=== PATIENT | female | born 1985 | race Caucasian/White ===

== ENCOUNTER → 2018-06-18 12:15 | Outpatient (CLI) | payer OTHER, SELFPAY ==
--- NOTE | 2018-06-18 | DI.US.S_ITS ---
PROCEDURE: US EXTREMELY NONVASC UPPER RT INDICATIONS: SOFT TISSUE MASS RIGHT UPPER ARM TECHNIQUE: Real-time scanning was performed of the lateral right posterior upper arm area, with image documentation. COMPARISON: None. FINDINGS: The ovoid area of subcutaneous fat hyperechoic margination correlated with the area of patient's clinical concern does not show abnormal elevated vascularity and measures 9 x 12 x 14 mm. The overlying soft tissues including a cutaneous layer is not abnormally thickened or edematous. IMPRESSION: Overall the structure discussed above measuring up to 9 x 12 x 14 mm is most likely a lipoma within the fatty soft tissues of the upper posterolateral arm. Continued clinical followup is recommended. If there is an unusual clinical presentation contrast enhanced MR scanning could be utilized for more accurate assessment. Dictated by: Quinton Akbar M.D. on 06/18/2018 at 14:16 Approved by: Quinton Akbar M.D. on 06/18/2018 at 14:18
== END ==
PROVIDERS: PCP Physician Assistant; Visit Provider Physician Assistant
DX: R22.31 Localized swelling, mass and lump, right upper limb (principal)
CPT/HCPCS: 76882

== ENCOUNTER → 2018-08-03 09:51 | Outpatient (CLI) | payer OTHER, SELFPAY ==
[2018-08-03 11:00] LABS: Glucose 106 mg/dL (70-100)
[2018-08-05 16:28] LABS: Insulin Level Total 8.6 uIU/mL (2.0-19.6)
== END ==
PROVIDERS: PCP Physician Assistant; Visit Provider Obstetrics & Gynecology
DX: E28.2 Polycystic ovarian syndrome (principal)
CPT/HCPCS: 36415; 82947; 83525; 84439; 84443

== ENCOUNTER → 2018-10-01 10:34 | Outpatient (CLI) | payer OTHER, SELFPAY ==
[2018-10-01 12:36] LABS: Free T4, Direct Thyroxine 0.93 ng/dL (0.78-2.19)
[2018-10-01 12:50] LABS: Thyroid Stimulating Hormone 6.05 uIU/mL (0.47-4.68)
== END ==
PROVIDERS: PCP Physician Assistant; Visit Provider Obstetrics & Gynecology
DX: E03.9 Hypothyroidism, unspecified (principal)
CPT/HCPCS: 36415; 84439; 84443

== ENCOUNTER → 2018-12-10 12:18 | Outpatient (CLI) | payer OTHER, SELFPAY ==
[2018-12-10 14:21] LABS: Free T4, Direct Thyroxine 1.03 ng/dL (0.78-2.19)
[2018-12-10 14:35] LABS: Thyroid Stimulating Hormone 3.76 uIU/mL (0.47-4.68)
== END ==
PROVIDERS: PCP Physician Assistant; Visit Provider Obstetrics & Gynecology
DX: E03.9 Hypothyroidism, unspecified (principal)
CPT/HCPCS: 36415; 84439; 84443

== ENCOUNTER → 2019-03-03 13:55 | Outpatient (CLI) | payer OTHER, SELFPAY ==
--- NOTE | 2019-03-03 | DI.RAD.S_ITS ---
PROCEDURE: XR KNEE LT 3V INDICATIONS: ACUTE PAIN OF LT KNEE TECHNIQUE: 3 views of the knee were acquired. COMPARISON: None. FINDINGS: Bones: No fractures or dislocations. No suspicious bony lesions. Lateral patellar tilt. Chronic ossicle projects adjacent to the medial aspect of the patella Soft tissues: No joint effusion. No suspicious soft tissue calcifications. Prepatellar soft tissue swelling IMPRESSION: No fracture. If the patient's pain or other symptoms persist, consider further evaluation with MRI Dictated by: Aditya Rivero M.D. on 03/03/2019 at 16:35 Approved by: Aditya Rivero M.D. on 03/03/2019 at 16:36
== END ==
PROVIDERS: PCP Physician Assistant; Visit Provider Physician Assistant
DX: M25.562 Pain in left knee (principal); M79.89 Other specified soft tissue disorders; E03.9 Hypothyroidism, unspecified; E66.01 Morbid (severe) obesity due to excess calories; R53.83 Other fatigue; E55.9 Vitamin D deficiency, unspecified; E78.2 Mixed hyperlipidemia
CPT/HCPCS: 73562; 80053; 80061; 82306; 84443; 85025

== ENCOUNTER → 2019-03-03 18:55 | Outpatient (ROUT) | payer OTHER, SELFPAY ==
[2019-03-03 19:05] LABS: Add Manual Diff / Slide Review NO; Basophils Absolute Auto 0 /uL (0-100); Basophils Percent Auto 0.7 % (0-2); Eosinophils Absolute Auto 0 /uL (0-450); Eosinophils Percent Auto 0.7 % (2-4); Hematocrit 38.3 % (36-46); Hemoglobin 12.7 g/dL (12.0-16.0); Lymphocytes Absolute Auto 2000 /uL (1100-4500); Lymphocytes Percent Auto 30.2 % (25-40); Mean Corpuscular HGB Conc 33.3 % (30-36); Mean Corpuscular Hemoglobin 28.4 PG (26-34); Mean Corpuscular Volume 85.4 fL (80-100); Monocytes Absolute Auto 400 /uL (0-900); Monocytes Percent Auto 5.6 % (3-14); Neutrophils Absolute Auto 4200 /uL (1500-7000); Neutrophils Percent Auto 62.8 % (50-75); Platelet Count 292 X10^3/uL (150-400); Red Blood Cell Count 4.48 X10^6/uL (4.0-5.2); Red Cell Distribution Width 14.3 % (11.6-14.8); White Blood Cell Count 6.7 X10^3/uL (4.5-11.0)
[2019-03-03 19:32] LABS: Alanine Aminotransferase 32 IU/L (<35); Albumin Globulin Ratio 1.3 (1.0-2.8); Alkaline Phosphatase 94 U/L (38-126); Aspartate Aminotransferase 27 IU/L (14-36); BUN Creatinine Ratio 17.8 (6-22); Bilirubin Total 0.5 mg/dL (0.2-1.3); Blood Urea Nitrogen 16 mg/dL (7-17); Calcium 9.2 mg/dL (8.4-10.2); Carbon Dioxide 28 mmol/L (22-32); Chloride 101 mmol/L (98-107); Cholesterol 210 mg/dL (140-199); Estimated Glomerular Filt Rate > 60.0 mL/min (>60); Globulin 3.2 g/dL (1.7-4.1); Glucose 91 mg/dL (70-100); HDL Cholesterol 52 mg/dL (40-60); HEMOLYSIS < 15 (0-50); LDL Cholesterol Calculated 141 mg/dL (<100); Potassium 4.4 mmol/L (3.4-5.1); Sodium 137 mmol/L (137-145); Total Protein 7.2 g/dL (6.3-8.2); Triglycerides 86 mg/dL (35-150)
[2019-03-03 19:47] LABS: Vitamin D 25 Hydroxy (D3) 13.4 ng/mL (30.0-100.0)
[2019-03-03 20:01] LABS: TSH w/ Reflex to FT4 4.38 uIU/mL (0.47-4.68)
== END ==
PROVIDERS: PCP Physician Assistant; Visit Provider Physician Assistant
DX: E03.9 Hypothyroidism, unspecified (principal); E66.01 Morbid (severe) obesity due to excess calories; R53.83 Other fatigue; E55.9 Vitamin D deficiency, unspecified; E78.2 Mixed hyperlipidemia
CPT/HCPCS: 80053; 80061; 82306; 84443; 85025

== ENCOUNTER → 2020-06-07 18:35 | Outpatient (ROUT) | payer OTHER, SELFPAY ==
[2020-06-07 18:47] LABS: Add Manual Diff / Slide Review NO; Basophils Absolute Auto 0 /uL (0-100); Basophils Percent Auto 0.4 % (0-2); Eosinophils Absolute Auto 0 /uL (0-450); Eosinophils Percent Auto 0.6 % (2-4); Hemoglobin 12.9 g/dL (12.0-16.0); Lymphocytes Absolute Auto 1800 /uL (1100-4500); Lymphocytes Percent Auto 28.7 % (25-40); Mean Corpuscular Hemoglobin 28.7 PG (26-34); Mean Corpuscular Volume 86.8 fL (80-100); Monocytes Absolute Auto 300 /uL (0-900); Monocytes Percent Auto 5.1 % (3-14); Neutrophils Absolute Auto 4100 /uL (1500-7000); Neutrophils Percent Auto 65.2 % (50-75); Platelet Count 239 X10^3/uL (150-400); Red Blood Cell Count 4.49 X10^6/uL (4.0-5.2); Red Cell Distribution Width 14.9 % (11.6-14.8); White Blood Cell Count 6.2 X10^3/uL (4.5-11.0)
[2020-06-07 19:00] LABS: Alanine Aminotransferase 39 IU/L (<35); Albumin 3.7 g/dL (3.5-5.0); Albumin Globulin Ratio 1.1 (1.0-2.8); Alkaline Phosphatase 89 U/L (38-126); Aspartate Aminotransferase 26 IU/L (14-36); BUN Creatinine Ratio 18.4 (6-22); Bilirubin Total 0.3 mg/dL (0.2-1.3); Blood Urea Nitrogen 16 mg/dL (7-17); Carbon Dioxide 30 mmol/L (22-32); Chloride 102 mmol/L (98-107); Cholesterol 194 mg/dL (140-199); Estimated Glomerular Filt Rate > 60.0 mL/min (>60); Globulin 3.3 g/dL (1.7-4.1); Glucose 114 mg/dL (70-100); HDL Cholesterol 54 mg/dL (40-60); HEMOLYSIS < 15 (0-50); LDL Cholesterol Calculated 124 mg/dL (<100); Potassium 4.1 mmol/L (3.4-5.1); Sodium 135 mmol/L (137-145); Triglycerides 82 mg/dL (35-150)
[2020-06-07 19:12] LABS: Vitamin D 25 Hydroxy (D3) 19.9 ng/mL (30.0-100.0)
[2020-06-07 19:27] LABS: TSH w/ Reflex to FT4 4.46 uIU/mL (0.47-4.68)
[2020-06-07 19:46] LABS: HIV 1 & 2 Ab/Ag 4th Gen Combo NEGATIVE (NEGATIVE)
[2020-06-08 09:41] LABS: Hemoglobin A1C% w Est Avg Glu 5.7 % (4.0-6.0)
[2020-06-09 02:48] LABS: RPR Screen Non Reactive (Non Reactive)
[2020-06-10 05:41] LABS: Chlamydia trachomatis NAA Negative (Negative); Neisseria gonorrhoeae NAA Negative (Negative)
== END ==
PROVIDERS: PCP Physician Assistant; Visit Provider Physician Assistant
DX: E03.9 Hypothyroidism, unspecified (principal); E78.2 Mixed hyperlipidemia
CPT/HCPCS: 80053; 80061; 82306; 83036; 84443; 85025; 86592; 87389; 87491; 87591

== ENCOUNTER → 2021-06-05 19:00 | Outpatient (CLI) | payer OTHER, SELFPAY ==
--- NOTE | 2021-06-05 19:02 | DI.RAD.S_ITS ---
PROCEDURE: XR SHOULDER RT MIN 2V INDICATIONS: shoulder pain TECHNIQUE: 3 views of the shoulder were acquired. COMPARISON: None. FINDINGS: Bones: No fractures or dislocations. No suspicious bony lesions. Visualized ribs appear intact. Coracoclavicular and acromioclavicular intervals are maintained. Soft tissues: No suspicious soft tissue calcifications. IMPRESSION: Right shoulder without acute fracture or dislocation. Dictated by: Panfilo Hollingsworth M.D. on 06/05/2021 at 19:12 Approved by: Panfilo Hollingsworth M.D. on 06/05/2021 at 19:12
== END ==
PROVIDERS: PCP Physician Assistant; Referring Provider Physician Assistant; Visit Provider Physician Assistant
DX: M25.611 Stiffness of right shoulder, not elsewhere classified (principal)
CPT/HCPCS: 73030

== ENCOUNTER → 2022-06-04 16:13 | Outpatient (CLI) | payer OTHER, SELFPAY | PROVIDERS: PCP Physician Assistant; Visit Provider Obstetrics & Gynecology | DX: Z34.01 Encounter for supervision of normal first pregnancy, first trimester (principal) | CPT/HCPCS: 87086 ==

== ENCOUNTER → 2022-06-25 13:55 | Outpatient (CLI) | payer OTHER, SELFPAY ==
[2022-06-25 15:08] LABS: Add Manual Diff / Slide Review NO; Basophils Absolute Auto 0 /uL (0-100); Basophils Percent Auto 0.5 % (0-2); Eosinophils Absolute Auto 0 /uL (0-450); Eosinophils Percent Auto 0.5 % (2-4); Hematocrit 33.7 % (36-46); Hemoglobin 11.2 g/dL (12.0-16.0); Lymphocytes Absolute Auto 1800 /uL (1100-4500); Lymphocytes Percent Auto 27.4 % (25-40); Mean Corpuscular HGB Conc 33.2 % (30-36); Mean Corpuscular Hemoglobin 27.9 PG (26-34); Mean Corpuscular Volume 83.8 fL (80-100); Monocytes Absolute Auto 500 /uL (0-900); Neutrophils Absolute Auto 4300 /uL (1500-7000); Neutrophils Percent Auto 64.6 % (50-75); Platelet Count 256 X10^3/uL (150-400); Red Blood Cell Count 4.02 X10^6/uL (4.0-5.2); Red Cell Distribution Width 14.8 % (11.6-14.8); White Blood Cell Count 6.7 X10^3/uL (4.5-11.0)
[2022-06-25 15:37] LABS: Hemoglobin A1C% w Est Avg Glu 5.6 % (4.0-6.0)
[2022-06-25 15:59] LABS: Free T3, Triiodothyronine Free 4.21 pg/mL (2.77-5.27); Free T4, Direct Thyroxine 1.14 ng/dL (0.78-2.19)
[2022-06-25 16:13] LABS: Thyroid Stimulating Hormone 2.43 uIU/mL (0.47-4.68)
[2022-06-26 15:55] LABS: HIV 1 & 2 Ab/Ag 4th Gen Combo NEGATIVE (NEGATIVE); Hep C Virus Ab w/Reflex Quant NEGATIVE s/c (NEGATIVE); Hepatitis B Surface Antigen NEGATIVE s/c (NEGATIVE); Rubella Antibody IgG 12.5 IU/mL (>15)
[2022-06-27 05:30] LABS: RPR Screen Non Reactive (Non Reactive)
[2022-06-27 08:36] LABS: Varicella IgG Antibody 974 index (Immune >165)
== END ==
PROVIDERS: Specialist; Referring Provider Obstetrics & Gynecology; Visit Provider Obstetrics & Gynecology
DX: O09.511 Supervision of elderly primigravida, first trimester (principal); E03.9 Hypothyroidism, unspecified; Z34.01 Encounter for supervision of normal first pregnancy, first trimester; E28.2 Polycystic ovarian syndrome; O99.210 Obesity complicating pregnancy, unspecified trimester
CPT/HCPCS: 36415; 80055; 83036; 84439; 84443; 84481; 86787; 86803; 86850; 86900; 86901; 87389

== ENCOUNTER → 2022-09-01 10:04 | Outpatient (CLI) | payer OTHER, SELFPAY ==
--- NOTE | 2022-09-01 10:05 | DI.US.S_ITS ---
PROCEDURE: US OB >= 14 WEEKS FETUS INDICATIONS: ANATOMY OUTSIDE/PRIOR DATING DATA: Last menstrual period (LMP): 08/03/2019 LMP-based estimated date of delivery (JAYLENE): 01/10/2023. First dating scan (date and location): 06/04/2022 Estimated date of delivery (JAYLENE) from first dating scan: 01/17/2023. The calculations are made using the study generated JAYLENE of 02/09/2023. TECHNIQUE: Real-time scanning was performed of the fetus, with image documentation and biometric measurements. Endovaginal scannin decayed it COMPARISON: [facility], , OB >= 14 WEEKS FETUS, 07/29/2022, 9:28. FINDINGS: General: A single living intrauterine gestation is present. Presentation: Vertex Placenta: Placental position is anterior, without previa. Amniotic fluid index: 14.6 cm, normal range is 5-24 cm. Single deepest vertical pocket is 4.2 cm. heart rate: 155 beats per minute. Maternal cervical canal: 3.4 cm long. Normal lower limit is 2.5 cm. biometrics: Biparietal diameter: 5.0 cm, 21 weeks, 1 day. Head circumference: 18.3 cm, 20 weeks, 5 days. Abdominal circumference: 16.4 cm, 21 weeks, 3 days. Femur length: 3.6 cm, 21 weeks, 4 days. Clinically estimated gestational age: 20 weeks, 2 days. Composite gestational age from present scan: 21 weeks, 2 days. Estimated weight and percentile: 421 g, 95%. Anatomic survey: Neuro: Ventricles are non-dilated at less than 10 mm. Cisterna magna is normal at 3-11 mm. Cerebellum is normal in size and morphology. Nuchal skin fold: Normal at less than 6 mm between 14-21 weeks gestational age. Face: Nose and lips, facial profile are not well seen due to lie. Spine: No evidence for spina bifida. Heart: 4-chambered heart is present, with normal ventricular outflow tracts. Diaphragm: Diaphragm is intact. Stomach: Left-sided stomach is present. Kidneys: No hydronephrosis. Normal is less than 5 mm in 2nd trimester, less than 7 mm in 3rd trimester. Cord: 3-vessel cord has orthotopic insertion. Bladder: Normal in size. Extremities: All 4 extremities identified. IMPRESSION: 1. Single live intrauterine gestation with fetus in vertex presentation. heart rate is 155 beats per minute. Normal amount of amniotic fluid. 2. Estimated weight is at 95%. 3. facial profile is not well seen due to position. Rest of the anatomic survey is within normal limits. We strive to produce accurate, complete, and clear reports of imaging services. To assist us in improving patient care, this report was composed using standard report templates and voice recognition software. Therefore, it may contain abnormal punctuation, insertions and/or omissions. Occasional wrong-word or sound-alike substitutions may occur. Though we review the report and make efforts to correct it, we do recommend that the report be read carefully in proper context to recognize any text inaccuracies. Dictated by: Daniele Montgomery M.D. on 09/01/2022 at 11:30 Approved by: Daniele Montgomery M.D. on 09/01/2022 at 11:33
== END ==
PROVIDERS: PCP Physician Assistant; Referring Provider Obstetrics & Gynecology; Visit Provider Obstetrics & Gynecology
DX: Z34.02 Encounter for supervision of normal first pregnancy, second trimester (principal); Z3A.20 20 weeks gestation of pregnancy
CPT/HCPCS: 76811

== ENCOUNTER → 2022-09-02 10:07 | Outpatient (CLI) | payer OTHER, SELFPAY ==
[2022-09-02 12:17] LABS: Free T4, Direct Thyroxine 0.99 ng/dL (0.78-2.19)
[2022-09-02 12:31] LABS: Thyroid Stimulating Hormone 2.87 uIU/mL (0.47-4.68)
[2022-09-05 22:38] LABS: AFP, Serum 67.1 ng/mL (.); Calc Gestational Age EDD (.); Estriol, Free 1.82 ng/mL (.); Inhibin A, Dimeric 82.48 pg/mL (.); Inhibin A, MoM 0.68 (.); Maternal Ethnicity Caucasian (.); Maternal Weight 364 lbs (.); Number of Fetuses No (.); OSBR Risk 1 IN 1477 (.); Results Report (.); Test Results *Screen Negative* (.); hCG, MoM 1.31 (.); hCG, Serum 20085 mIU/mL (.)
== END ==
PROVIDERS: PCP Physician Assistant; Referring Provider Obstetrics & Gynecology; Visit Provider Obstetrics & Gynecology
DX: Z34.02 Encounter for supervision of normal first pregnancy, second trimester (principal); Z3A.20 20 weeks gestation of pregnancy; E03.9 Hypothyroidism, unspecified
CPT/HCPCS: 36415; 82105; 82677; 84439; 84443; 84702; 86336

== ENCOUNTER → 2022-09-10 12:04 | Outpatient (CLI) | payer OTHER, SELFPAY ==
[2022-09-10 13:57] LABS: GTT (PREG) 1 Hour PP 50gm Dose 201 mg/dL (76-139)
== END ==
PROVIDERS: PCP Physician Assistant; Referring Provider Obstetrics & Gynecology; Visit Provider Obstetrics & Gynecology
DX: Z34.02 Encounter for supervision of normal first pregnancy, second trimester (principal); Z3A.22 22 weeks gestation of pregnancy
CPT/HCPCS: 36415; 82950

== ENCOUNTER → 2022-09-16 16:12 | Outpatient (CLI) | payer OTHER, SELFPAY ==
--- NOTE | 2022-09-17 09:42 | DIAB.GDA ---
Initial Gestational Diabetes Assessment Name: Lexy Alcantara Date: 09/16/22 Time: 438-6p Dx: Gestational Diabetes Provider: Vish JAYLENE: 01/17/23 Weeks: 23 Lexy presents for initial GDM visit. PMH of PCOS. Last HgA1c in 06/2022 of 5.6%. Pre Metformin 500mg. Has been checking BG intermittently due to known GDM risk. 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 She is having a boy! States she has a hard time with food textures. Limited veggie acceptance. Likes some roasted options, ie carrots/zucchini. Busy work schedule tends to impact eating schedule. States she misses eating deli meat sandwiches, avoiding due to listeria risk. Diet Recall: 830-10a: take out bagel breakfast sandwich OR yogurt OR string cheese OR 1/2c bran bud cereal with milk 12-3p: grocery store hot sandwich, ie chicken or hamburger +/- fries or chips. Restaurant chicken nuggets x 6-10 + chips or fries. 6-8p: chicken with 3/4c beans and 3/4-1c rice OR 2c casserole sn: nothing or string cheese or almonds Beverages: 30-60oz water, 24oz tea with splenda, diet pepsi somtimes (cut out soda recently), frozen mocha occasionally Anthropometrics: Ht: 5'11 Wt: 362# 09/02 at last OB visit Prepregnancy wt: 340# per OB notes, 358# reported Physical Activity: walks frequently for work, however no structured activity. Barriers: schedule with work and school. Use to go to the gym, no longer has membership. Self-Monitoring Blood Glucose: Checking FBG and 1 or 2 hour pc infrequently. Postprandial readings are 2hr unless otherwise specified. All recent FBG documented elevated. After breakfast in goal. After lunch all elevated. After dinner 3 of 4 documented readings elevated. Date Pre Post Pre Post Pre Post HS 09/10 136 6/1 97 114 143 1 hr 134 2 hr 145 6/2 109 111 160 1 hr 148 2 hr 6/3 148 1 hr 94 6/4 103 119 6/5 158 6/6 119 98 124 Diabetes Medications: 500mg Metformin HS Pertinent Labs: glucose screen 201 (08/2022) ; 5.6% HgA1c 06/2022 Nutrition Rx: Carbohydrates: Daily: 175-210g Meal: 45-60g lunch and dinner; 30g breakfast Snack: 15-30g Nutrition Diagnosis: Altered nutrition related lab value r/t GDM dx aeb recent glucose screen and SMBG Excessive CHO intake r/t nutrition knowledge deficit aeb diet recall and pt report Physical inactivity r/t stage of change preparation and busy schedule aeb pt report Predicted inadequate fiber intake r/t limited whole grains and vegetables aeb diet recall Intervention: This participant was very receptive. Provided appropriate educational handouts. Discussed the following topics: GDM pathophysiology and impact of hyperglycemia on mom and baby Risk for T2DM for mom and baby in the future Ways to reduce risk T2DM Plate Method, meal timing, carb counting, pairing macronutrients and spreading out CHO for better BG management Blood glucose goals (FBG: <95 and 1 hour <140 mg/dL or 2 hour <120 mg/dl); importance of checking 4x per day (FBG and pc) Impact of macronutrients on blood glucose Recommended servings for carbohydrates at meals and snacks Brainstormed appropriate meal plan based on her food preferences Role of physical activity and following provider guidelines for safety Ways to incorporate vegetables she enjoys Fluid recs during Goals: Try to bring lunch to work Incorporate more veggies, 2x per week min Walk 3-4 x per week Check BG 4x per day Message/Call OB with recent BG results Follow-up: VALERIO RAMIREZ follow-up in two weeks. Encouraged Lexy to call or message Dr. Wahl with recent BG results. Likely needs additional medication management, which her and Vish have discussed in the past per her report. OB f/u in two weeks. Pastora Jha RDN, ASHLEY Certified Diabetes Care and Nutritional Chemist T: [phone] F: [phone] [email or web address] Thank you for this referral
== END ==
PROVIDERS: Absent Provider Physician Assistant; Family Provider Physician Assistant; PCP Physician Assistant; Referring Provider Obstetrics & Gynecology; Visit Provider Obstetrics & Gynecology
DX: O24.415 Gestational diabetes mellitus in pregnancy, controlled by oral hypoglycemic drugs (principal); Z3A.23 23 weeks gestation of pregnancy; Z71.3 Dietary counseling and surveillance
CPT/HCPCS: 97802

== ENCOUNTER → 2022-10-03 12:49 | Outpatient (CLI) | payer OTHER, SELFPAY ==
--- NOTE | 2022-10-03 13:06 | DIAB.FU ---
Follow-up Diabetes Education Assessment Name: Lexy Alcantara Date: 10/03/22 Time: 1pm Dx: Gestational Diabetes Provider: Vish Pt attending 3w f/u for gestational DM, currently 26w. 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 Pt states two days after starting insulin she noticed FBGs almost all below 95. Pt states she was instructed to increase by 2U if 3 consecutive FBG >100 which has not happened. Pt brought BG log on her phone. Reviewed numbers which look excellent. Pt states a few PP BGs were >140 but this is with higher than normal intake refined carbohydrates. Pt finding it interesting to learn how PO intake impacts BG and continues to trend this relationship and shift eating. Pt has no concerns regarding self-injecting. Pt would like RDN f/u in 4w to continue monitoring and problem solving. Self-Monitoring Blood Glucose: Date Pre Post Pre Post Pre Post HS 10/03 91 114 112 10/02 91 145 124 10/01 97 111 119 09/30 102 103 102 09/29 87 Diabetes Medications: Metformin 500mg bid NPH 10U HS Past Medical History: (Last Reviewed 06/05/21 @ 20:01 by Kristal Mckeon PA-C) Acquired hypothyroidism Anxiety Chicken pox (~1996) 11 years old Depression (~2017) Foot pain (~2015) Hemorrhoid Hypothyroidism Infertility Irregular menstrual cycle (~2013) 3+ years Polycystic ovaries Intervention: This participant was very receptive. Provided appropriate educational handouts. Discussed the following topics: Recent blood sugar results and trends Medication management Review of general nutrition recommendations and current intake Goals: Pt will keep FBG <95, if three consecutive FBG >100 will increase NPH by 2U. Pt will keep 1H PP BG <140. Pt will identify commonalities with elevated PP BG. Pt will incorporate protein snack daily while at work to support nutrition status and LE edema such as part-skim mozzarella cheese stick or Fairlife protein drink. Follow-up: RDN follow-up in 4 weeks Vera Patel MS RDN P: [phone] Thank you for this referral
== END ==
PROVIDERS: Family Provider Physician Assistant; PCP Physician Assistant; Referring Provider Obstetrics & Gynecology; Visit Provider Obstetrics & Gynecology
DX: O24.414 Gestational diabetes mellitus in pregnancy, insulin controlled (principal); Z3A.26 26 weeks gestation of pregnancy
CPT/HCPCS: 97803

== ENCOUNTER → 2022-10-31 12:43 | Outpatient (CLI) | payer OTHER, SELFPAY ==
--- NOTE | 2022-10-31 13:05 | DIAB.FU ---
Follow-up Diabetes Education Assessment Name: Lexy Alcantara Date: 10/31/22 Time: 1300 Dx: Gestational Diabetes Provider: Vish Physical Activity: ADLs 37y F attending RD f/u for Gestational Diabetes at 29w gestation. Pt with hx PCOS. Pt initiated insulin therapy at 26w gestation due to elevated FBGs. She was in range using 10U NPH HS for two weeks then started to see FBGs in 110-115 range and 2h PP >120s. Pt increased NPH by 2U q3d as directed to current level of 26U but is still seeing FBGs in 110 range and elevated PPs. Highest PP to date is 186. Per Dr. Mike, pt started 6U NPH AC in addition to evening insulin. Pt likely needs meal time insulin as meal of ham sandwich leads to slight elevation of PP BG. Pt started drinking high pro/low carb protein drink daily (Fairlife 30g PRO, 1g CHO) and noticed BGs more stable when she does consume this. Pt is interested in Continuous Glucose Monitor, this RD recommends placement of CGM due to escalation of insulin therapy with BGs outside of range despite carbohydrate intake within allowed range. Self-Monitoring Blood Glucose: Date FBG Post Pre Post 2h PP Pre Post HS 110-115 highest is 160 @ 94 on 10/24 avg 130-140 Diabetes Medications: 26U NPH HS, 6U NPH AC Past Medical History: (Last Reviewed 06/05/21 @ 20:01 by Kristal Mckeon PA-C) Acquired hypothyroidism Anxiety Chicken pox (~1996) 11 years old Depression (~2017) Foot pain (~2015) Hemorrhoid Hypothyroidism Infertility Irregular menstrual cycle (~2013) 3+ years Polycystic ovaries Intervention: 1. Discussed option of CGM placement to better characterize BG trends and insulin therapy. 2. Reiterated importance of fiber rich CHO sources and including protein with all meals and snacks. 3. Encouraged pt to take 10 min walk after meals to help BG. Goals: Pt will keep FBG <95, if three consecutive FBG >100 will increase NPH by 2U. ONGOING Pt will keep 1H PP BG <140. Pt will identify commonalities with elevated PP BG. ONGOING Pt will incorporate protein snack daily while at work to support nutrition status and LE edema such as part-skim mozzarella cheese stick or Fairlife protein drink. MET Pt will discuss Continuous Glucose Monitor c TIE PULLER for BG management support. NEW Follow-up: RDN follow-up in 3 weeks Vera Patel MS RD P: [phone] Thank you for this referral
== END ==
PROVIDERS: Family Provider Physician Assistant; PCP Physician Assistant; Referring Provider Obstetrics & Gynecology; Visit Provider Obstetrics & Gynecology
DX: O24.414 Gestational diabetes mellitus in pregnancy, insulin controlled (principal); Z3A.29 29 weeks gestation of pregnancy
CPT/HCPCS: 97803

== ENCOUNTER → 2022-11-03 15:56 | Outpatient (CLI) | payer OTHER, SELFPAY ==
[2022-11-03 17:18] LABS: Hematocrit 33.4 % (36-46); Hemoglobin 11.2 g/dL (12.0-16.0)
== END ==
PROVIDERS: Family Provider Physician Assistant; PCP Physician Assistant; Referring Provider Obstetrics & Gynecology; Visit Provider Obstetrics & Gynecology
DX: Z34.02 Encounter for supervision of normal first pregnancy, second trimester (principal); Z3A.26 26 weeks gestation of pregnancy
CPT/HCPCS: 36415; 85014; 85018

== ENCOUNTER 2022-11-17 15:27 | Outpatient (CLI) | payer OTHER, SELFPAY | END 2022-11-17 16:15 | disposition home or self-care (01) | LOC: OB 11-24 06:56 | PROVIDERS: Family Provider Physician Assistant; PCP Physician Assistant; Referring Provider Obstetrics & Gynecology; Visit Provider Obstetrics & Gynecology | DX: O24.415 Gestational diabetes mellitus in pregnancy, controlled by oral hypoglycemic drugs (principal); Z3A.31 31 weeks gestation of pregnancy | CPT/HCPCS: 59025; G0378; G0379 ==

== ENCOUNTER 2022-11-24 12:43 | Outpatient (CLI) | payer OTHER, SELFPAY | END 2022-11-24 13:25 | disposition home or self-care (01) | LOC: LABOR 12:57 → OB 11-27 12:45 | PROVIDERS: Family Provider Physician Assistant; PCP Physician Assistant; Referring Provider Obstetrics & Gynecology; Visit Provider Obstetrics & Gynecology | DX: O24.414 Gestational diabetes mellitus in pregnancy, insulin controlled (principal); O09.513 Supervision of elderly primigravida, third trimester; O99.283 Endocrine, nutritional and metabolic diseases complicating pregnancy, third trimester; E28.2 Polycystic ovarian syndrome; Z3A.32 32 weeks gestation of pregnancy | CPT/HCPCS: 59025; G0378; G0379 ==

== ENCOUNTER → 2022-11-26 12:48 | Outpatient (CLI) | payer OTHER, SELFPAY ==
--- NOTE | 2022-11-26 13:02 | DIAB.GDFU ---
Follow-up Gestational Diabetes Assessment Name: Lexy Alcantara Date: 11/26/22 Time: 1pm Dx: Gestational Diabetes Provider: Vish Weeks: 32 +4 plan to induce at 37 to 38w Pt still having FBG above goal, ranging 93-105. Increased HS NPH to 40U two days ago. Likely will continue to increase dosage. Pts PP BGs in range except during baby shower and if she eats something high in refined carbohydrates that she knows will cause BG elevation. Pt had Rx for continuous glucose monitor but [facility] unable to fill Rx. Pt waiting for pre-auth (?). Would be good for OB team to check status of Rx as pt still would like CGM due to insulin use and suboptimal BGs. Diet Recall: Fairlife drink most days per week B: breakfast sandwich on syriac muffin L: chicken tenders with ranch sometimes D: steak with corn (123 PP) sweating a lot more, urine is good color but feels slightly dehydrated. Wt changes: +25# Self-Monitoring Blood Glucose: Date Pre Post Pre Post Pre Post HS 93-105 100-140 aiming for low 90s Pt looking forward to last day of work in early December, currently training replacement. Diabetes Medications: 40U NPH HS, 16U AC Nutrition Rx: Carbohydrates: Meal: 45-g lunch and dinner; 30g breakfast Snack: 15-30g Nutrition Diagnosis: Altered nutrition related lab value r/t GDM dx aeb recent OGTT Intervention: This participant was very receptive. Provided appropriate educational handouts. Discussed the following topics: Recent blood sugar results and impact of food and hormones Review of macronutrient recommendations during Benefits, resources, and nutrition for recommendations for nutrition and physical activity recommendations for T2DM risk reduction OGTT at 6-12 weeks Checking blood sugars twice per week (goal: fasting <100 mg/dL and 2 hour pc <140 mg/dL) until 6 week check-up HgA1c q 1-3 years. Goals: To support hydration, pt will order 24oz iced tea from [employer] then add extra ice once ice melts during work days. To support hydration, pt will drink one bottle of water at 4am when she wakes to urinate. To reduce edema, pt will limit sodium intake to 600mg per meal, ensure protein with each meal and put legs up when able. Follow-up: MAIKEL Patel RD T: [phone] F: [phone] Thank you for this referral
== END ==
PROVIDERS: Absent Provider Physician Assistant Medical; Family Provider Physician Assistant; PCP Physician Assistant; Referring Provider Obstetrics & Gynecology; Visit Provider Obstetrics & Gynecology
DX: O24.414 Gestational diabetes mellitus in pregnancy, insulin controlled (principal); Z3A.32 32 weeks gestation of pregnancy; Z71.3 Dietary counseling and surveillance
CPT/HCPCS: 97803

== ENCOUNTER 2022-12-01 15:05 | Outpatient (CLI) | payer OTHER, SELFPAY ==
--- NOTE | 2022-12-01 15:35 | DI.US.S_ITS ---
PROCEDURE: US OB BIOPHYSICAL PROFILE INDICATIONS: GESTATIONAL DM OUTSIDE/PRIOR DATING DATA: Last menstrual period (LMP): 04/05/2022. LMP-based estimated date of delivery (JAYLENE): 01/10/2023. First dating scan (date and location): 06/04/2022 Estimated date of delivery (JAYLENE) from first dating scan: 01/17/2023. The calculations are made using the ultrasound JAYLENE of 01/17/2023. TECHNIQUE: Real-time scanning was performed of the fetus, with image documentation and biometric measurements. Biophysical profile was also obtained. Endovaginal scanning: Not performed COMPARISON: None. FINDINGS: General: A single living intrauterine gestation is present. Presentation: Vertex. Placenta: Placental position is anterior , without previa. Amniotic fluid index: 11.3 cm, normal range is 5-24 cm. Single deepest vertical pocket is 5.6 cm. heart rate: 139 beats per minute. Maternal cervical canal: Not seen at late stage of Clinically estimated gestational age: 33 weeks 2 days Biophysical profile: Tone: 2 points. Movement: 2 points. Respiration: 2 points. Largest pocket of fluid: 2 points. IMPRESSION: Living 3rd trimester intrauterine with no sonographic evidence of complications. Ultrasound biophysical profile is 8/8. We strive to produce accurate, complete, and clear reports of imaging services. To assist us in improving patient care, this report was composed using standard report templates and voice recognition software. Therefore, it may contain abnormal punctuation, insertions and/or omissions. Occasional wrong-word or sound-alike substitutions may occur. Though we review the report and make efforts to correct it, we do recommend that the report be read carefully in proper context to recognize any text inaccuracies. Dictated by: Apollo Rider M.D. on 12/01/2022 at 17:00 Approved by: Apollo Rider M.D. on 12/01/2022 at 17:02
[2022-12-01 16:49] LABS: Add Manual Diff / Slide Review NO; Basophils Absolute Auto 0 /uL (0-100); Basophils Percent Auto 0.3 % (0-2); Eosinophils Absolute Auto 0 /uL (0-450); Eosinophils Percent Auto 0.4 % (2-4); Hematocrit 33.5 % (36-46); Hemoglobin 11.2 g/dL (12.0-16.0); Lymphocytes Absolute Auto 2200 /uL (1100-4500); Lymphocytes Percent Auto 20.1 % (25-40); Mean Corpuscular HGB Conc 33.4 % (30-36); Mean Corpuscular Hemoglobin 28.5 PG (26-34); Mean Corpuscular Volume 85.4 fL (80-100); Monocytes Absolute Auto 600 /uL (0-900); Monocytes Percent Auto 5.2 % (3-14); Neutrophils Absolute Auto 8200 /uL (1500-7000); Platelet Count 253 X10^3/uL (150-400); Red Blood Cell Count 3.93 X10^6/uL (4.0-5.2); Red Cell Distribution Width 14.8 % (11.6-14.8); White Blood Cell Count 11.1 X10^3/uL (4.5-11.0)
[2022-12-01 16:58] LABS: Aspartate Aminotransferase 19 IU/L (14-36); BUN Creatinine Ratio 19.4 (6-22); Blood Urea Nitrogen 13 mg/dL (7-17); Estimated Glomerular Filt Rate > 60 mL/min (>60)
== END 2022-12-01 16:45 | disposition home or self-care (01) ==
LOC: LABOR 15:09 → OB 12-04 12:20
PROVIDERS: Family Provider Physician Assistant; PCP Physician Assistant; Referring Provider Obstetrics & Gynecology; Visit Provider Obstetrics & Gynecology
DX: O24.414 Gestational diabetes mellitus in pregnancy, insulin controlled (principal); Z3A.33 33 weeks gestation of pregnancy
CPT/HCPCS: 36415; 59025; 76819; 84450; 84550; 85025; G0378; G0379

== ENCOUNTER 2022-12-05 12:46 | Outpatient (CLI) | payer OTHER, SELFPAY | END 2022-12-05 13:40 | disposition home or self-care (01) | LOC: LABOR 13:17 → OB 12-08 07:21 | PROVIDERS: Family Provider Physician Assistant; PCP Physician Assistant; Referring Provider Obstetrics & Gynecology; Visit Provider Obstetrics & Gynecology | DX: O24.414 Gestational diabetes mellitus in pregnancy, insulin controlled (principal); O16.3 Unspecified maternal hypertension, third trimester; O09.513 Supervision of elderly primigravida, third trimester; Z3A.33 33 weeks gestation of pregnancy | CPT/HCPCS: 59025; G0378; G0379 ==

== ENCOUNTER 2022-12-08 15:09 | Outpatient (CLI) | payer OTHER, SELFPAY | END 2022-12-08 15:55 | disposition home or self-care (01) | LOC: LABOR 16:04 → OB 12-12 06:13 | PROVIDERS: Family Provider Physician Assistant; PCP Physician Assistant; Referring Provider Obstetrics & Gynecology; Visit Provider Obstetrics & Gynecology | DX: O24.414 Gestational diabetes mellitus in pregnancy, insulin controlled (principal); O13.3 Gestational [pregnancy-induced] hypertension without significant proteinuria, third trimester; O09.513 Supervision of elderly primigravida, third trimester; Z3A.34 34 weeks gestation of pregnancy | CPT/HCPCS: 59025; G0378; G0379 ==

== ENCOUNTER 2022-12-12 12:56 | Outpatient (CLI) | payer OTHER, SELFPAY | END 2022-12-12 13:25 | disposition home or self-care (01) | LOC: LABOR 13:21 → OB 12-16 06:15 | PROVIDERS: Family Provider Physician Assistant; PCP Physician Assistant; Referring Provider Obstetrics & Gynecology; Visit Provider Obstetrics & Gynecology | DX: O09.513 Supervision of elderly primigravida, third trimester (principal); O24.414 Gestational diabetes mellitus in pregnancy, insulin controlled; O13.3 Gestational [pregnancy-induced] hypertension without significant proteinuria, third trimester; Z3A.34 34 weeks gestation of pregnancy | CPT/HCPCS: 59025; G0378; G0379 ==

== ENCOUNTER 2022-12-16 09:57 | Outpatient (CLI) | payer OTHER, SELFPAY ==
--- NOTE | 2022-12-16 10:15 | DI.US.S_ITS ---
PROCEDURE: US OB LIMITED INDICATIONS: DIABETIC. BIOPHYSICAL AND GROWTH. OUTSIDE/PRIOR DATING DATA: Last menstrual period (LMP): 04/05/2022. LMP-based estimated date of delivery (JAYLENE): 01/10/2023. First dating scan (date and location): 06/04/2022. Estimated date of delivery (JAYLENE) from first dating scan: 01/17/2023 (working JAYLENE). TECHNIQUE: Real-time scanning was performed of the fetus, with image documentation and biometric measurements. COMPARISON: [facility], , OB >= 14 WEEKS FETUS, 12/08/2022, 15:00. [facility], , OB >= 14 WEEKS FETUS, 12/16/2022, 9:52. FINDINGS: General: A single living intrauterine gestation is present. Presentation: Vertex. Placenta: Placental position is anterior , without previa. Amniotic fluid index: 9.9 cm, normal range is 5-24 cm. Single deepest vertical pocket is 4.9 cm. heart rate: 136 beats per minute. Maternal cervical canal: Not well seen biometrics: Biparietal diameter: 9.4 centimeters, 38 weeks and 3 days Head circumference: 33.5 centimeters, 38 weeks and 3 days Abdominal circumference: 35.4 centimeters, 39 weeks and 2 days Femur length: 7.2 centimeters, 37 weeks Clinically estimated gestational age: 35 weeks and 3 days Composite gestational age from present scan: 38 weeks and 2 days Estimated weight and percentile: 3544 grams, 99th percentile BP 11/18 IMPRESSION: Living intrauterine gestation with working JAYLENE of 01/17/2023. Above expected growth, measuring 38 weeks and 2 days (estimated gestational age is 35 weeks and 3 days). Estimated weight is at the 99th percentile, particularly the abdominal circumference. Normal RUDY. Dictated by: Shen William M.D. on 12/16/2022 at 12:05 Approved by: Shen William M.D. on 12/16/2022 at 12:09
== END 2022-12-16 11:35 | disposition home or self-care (01) ==
LOC: LABOR 10:21 → OB 12-17 16:39
PROVIDERS: Family Provider Physician Assistant; PCP Physician Assistant; Referring Provider Obstetrics & Gynecology; Visit Provider Obstetrics & Gynecology
DX: O09.513 Supervision of elderly primigravida, third trimester (principal); O24.414 Gestational diabetes mellitus in pregnancy, insulin controlled; O13.3 Gestational [pregnancy-induced] hypertension without significant proteinuria, third trimester; Z3A.35 35 weeks gestation of pregnancy
CPT/HCPCS: 59025; 76815; G0378; G0379

== ENCOUNTER 2022-12-19 13:03 | Outpatient (CLI) | payer OTHER, SELFPAY | END 2022-12-19 13:55 | disposition home or self-care (01) | LOC: LABOR 13:44 → OB 12-22 11:56 | PROVIDERS: Family Provider Physician Assistant; PCP Physician Assistant; Referring Provider Obstetrics & Gynecology; Visit Provider Obstetrics & Gynecology | DX: O24.414 Gestational diabetes mellitus in pregnancy, insulin controlled (principal); O13.3 Gestational [pregnancy-induced] hypertension without significant proteinuria, third trimester; Z3A.35 35 weeks gestation of pregnancy; O09.523 Supervision of elderly multigravida, third trimester | CPT/HCPCS: 59025; G0378; G0379 ==

== ENCOUNTER 2022-12-23 10:26 | Outpatient (CLI) | payer OTHER, SELFPAY | END 2022-12-23 10:57 | disposition home or self-care (01) | LOC: LABOR 10:40 → OB 01-07 08:04 | PROVIDERS: Family Provider Physician Assistant; PCP Physician Assistant; Referring Provider Obstetrics & Gynecology; Visit Provider Obstetrics & Gynecology | DX: Z36.9 Encounter for antenatal screening, unspecified (principal); Z3A.36 36 weeks gestation of pregnancy | CPT/HCPCS: 59025; 87653; G0378; G0379 ==

== ENCOUNTER → 2022-12-23 10:26 | Outpatient (CLI) | payer OTHER, SELFPAY ==
[2022-12-24 13:27] LABS: Strep Grp B PCR NEG for Grp B Strep
== END ==
PROVIDERS: Family Provider Physician Assistant; PCP Physician Assistant; Visit Provider Obstetrics & Gynecology
DX: Z34.03 Encounter for supervision of normal first pregnancy, third trimester (principal); Z3A.36 36 weeks gestation of pregnancy
CPT/HCPCS: 87653

== ENCOUNTER 2022-12-26 13:06 | Outpatient (CLI) | payer OTHER, SELFPAY ==
--- NOTE | 2022-12-26 13:49 | PM.OBTRLD ---
Visit Information Visit Information Date of evaluation: 12/26/22 Primary OB Provider: Norma Wahl On-call OB Provider: Genna Mike Reason for Evaluation: Yes non-stress test non-stress test reason: diabetes (On insulin) Comments/Additional reasons for admission: Advanced maternal age, 99th percentile for growth mostly from increased abdominal circumference on ultrasound performed at 36 weeks Vital Signs Vital Signs: Blood pressure 132/66, pulse of 83, temperature 35.7 PFSH Medical History Acquired hypothyroidism Anxiety Chicken pox (~1996) Depression (~2017) Foot pain (~2015) Hemorrhoid Hypothyroidism Infertility Irregular menstrual cycle (~2013) Polycystic ovaries Surgical History Anesthesia Lipoma [place] teeth removed (~2002) Family History (Updated 05/13/22 @ 14:13 by Zuri Crawford RN) Father Stroke Family estrangement Agent orange exposure Mother Hypertension Hyperlipidemia Lung cancer Hypothyroidism Grandfather Diabetes mellitus Hypertension Hyperlipidemia Obesity Grandmother Aortic aneurysm Family/Other Thyroid disease Lymphoma Social History marital status: unmarried,living together number of children: 0 household members: spouse lives independently: Yes caregiver/support person: No housing: house pets and animals: Yes (2 cats, 1 dog. 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[employer]) current occupational exposures/hazards: Yes (Aware and taking precautions) special hannah needs: No travel history: recent (domestic cross-country move) seatbelt use: always water heater temp set < 120 deg: Yes working smoke detector in home: Yes fire extinguisher in home: Yes carbon monox detector in home: Yes firearms in home: Yes firearms unloaded and locked: Yes do you feel safe at home: Yes Smoking Status: Never smoker second hand exposure: No alcohol intake: former (very rarely when not ) substance use type: marijuana (occasional edibles when not /) during the past year weight has: remained stable well-balanced diet: rarely or never daily servings fruits/ve-4 caffeine: No (quit when she learned she was ) Type(s) of exercise: walking Evaluation Evaluation Baseline heart rate: 130 Variability: Moderate (11-25) monitor accelerations: Present Monitor Decelerations: Absent Contraction Frequency (minutes): 0 Category of Tracing: Reactive Status: Category l Diagnosis, Plan/Disposition Final Diagnosis (1) Gestational diabetes requiring insulin: Status: Acute (2) Advanced maternal age (AMA) in : Status: Acute (3) 36 weeks gestation of : Status: Acute Plan/Disposition Plan: Reactive nonstress test. Continue twice weekly nonstress tests and weekly visits OB Disposition: home
== END 2022-12-26 13:55 | disposition home or self-care (01) ==
LOC: LABOR 13:30 → OB 01-26 11:51
PROVIDERS: Family Provider Physician Assistant; PCP Physician Assistant; Referring Provider Obstetrics & Gynecology; Visit Provider Obstetrics & Gynecology
DX: O24.414 Gestational diabetes mellitus in pregnancy, insulin controlled (principal); Z3A.36 36 weeks gestation of pregnancy; O09.513 Supervision of elderly primigravida, third trimester
CPT/HCPCS: 59025; G0378; G0379

== ENCOUNTER 2022-12-28 19:42 | Inpatient (IN) | payer OTHER, SELFPAY ==
[2022-12-28 19:46] VITALS: BP 143/72
--- NOTE | 2022-12-28 20:47 | P.HPOB_ITS ---
OB HPI Date/Time Date of admission: 12/28/22 Time Patient Seen: 20:50 History of Present Condition Chief complaint: induction : 1 Para: 0 Estimated Date of Delivery: 01/17/23 Estimated Gestational Age (weeks): 37w 1d Narrative: Lexy Alcantara is a 37 year old female Comments: Ient has started her OB care at 8 weeks' gestation. She was a known polycystic ovary patient and was on metformin for conception. She was started immediately on glucose monitoring. It was determined that she needed to add insulin for additional blood sugar control. Her most recent doses are insulin NPH 20 in the morning and 38 in the evening. She is been noted to have gradual increasing blood pressure near term. She was started on labetalol 1 week ago 100 mg daily. Her most recent visit on the 16 of December so the blood pressure 120/86. She is been followed with ultrasounds for growth. She is also noted to have hypothyroidism since childhood. She is currently taking 170 mcg of levothyroxine. She presents today for induction of labor at 37 weeks because of her gestational diabetes with insulin control as well as increasing BP Indications Indication for induction OB: gestational HTN/pre-eclampsia (Increasing blood pressure requiring labetalol 100 mg p.o. q.d.) and gestational diabetes (NPH 20 units q.a.m. 38 units the p.m.. Metformin 500 mg p.o. b.i.d.) History of Present Obstetrical complications: gestational diabetes and gestational hypertension Preadmission Labs Blood type: A (+) positive -: Antibody screen: negative, GBS status: negative, HBsAG: negative, HIV: negative, HSV 1: negative, HSV 2: negative and RPR/VDLR: negative -: Chlamydia screen: not detected and Gonorrhea screen: not detected -: Rubella: equivocal and Varicella: immune Quad screen: Normal Cell-free DNA: CFT was equivocal. 1 hr GTT: 201 Evaluation Evaluation Baseline heart rate: 130 Variability: Average (6-10) monitor accelerations: Present Monitor Decelerations: Absent Status: Category l Dilation (cm): 1 Dilation: 1-2 cm Effacement: 40-50% station: -2 Position of cervix: anterior Consistency: soft Neumann score: 7 Non-invasive Membranes Rupture Test: negative [facility] Medical History Acquired hypothyroidism Anxiety Chicken pox (~1996) Depression (~2017) Foot pain (~2015) Hemorrhoid Hypothyroidism Infertility Irregular menstrual cycle (~2013) Polycystic ovaries Surgical History Anesthesia [place]oma [place] teeth removed (~2002) Family History (Updated 05/13/22 @ 14:13 by Zuri Crawford RN) Father Stroke Family estrangement Agent orange exposure Mother Hypertension Hyperlipidemia Lung cancer Hypothyroidism Grandfather Diabetes mellitus Hypertension Hyperlipidemia Obesity Grandmother Aortic aneurysm Family/Other Thyroid disease Lymphoma Social History marital status: unmarried,living together number of children: 0 household members: spouse lives independently: Yes caregiver/support person: No housing: house pets and animals: Yes (2 cats, 1 dog. 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[employer]) current occupational exposures/hazards: Yes (Aware and taking precautions) special hannah needs: No travel history: recent (domestic cross-country move) seatbelt use: always water heater temp set < 120 deg: Yes working smoke detector in home: Yes fire extinguisher in home: Yes carbon monox detector in home: Yes firearms in home: Yes firearms unloaded and locked: Yes do you feel safe at home: Yes Smoking Status: Never smoker second hand exposure: No alcohol intake: former (very rarely when not ) substance use type: marijuana (occasional edibles when not /) during the past year weight has: remained stable well-balanced diet: rarely or never daily servings fruits/ve-4 caffeine: No (quit when she learned she was ) Type(s) of exercise: walking Meds Home Medications and Allergies Home Medications Medication Instructions Recorded Confirmed Type cholecalciferol (vitamin D3) 50 50 mcg PO DAILY 05/13/22 12/23/22 History mcg (2,000 unit) capsule levothyroxine 175 mcg tablet 175 mcg PO DAILY 05/13/22 12/23/22 History prenat.vits,dinesh,tgc-rfrx-ccgna 1 tab PO DAILY 05/13/22 12/23/22 History blood-glucose meter (Blood Glucose #1 ea 09/10/22 12/23/22 Rx Monitoring kit) metformin 500 mg tablet 500 mg PO BID #60 tabs 09/25/22 12/23/22 Rx blood-glucose meter,continuous #1 ea 11/04/22 12/23/22 Rx lancets 33 gauge (TRUEplus Lancets) #300 ea 11/21/22 12/23/22 Rx blood sugar diagnostic (OneTouch #300 strips 12/02/22 12/23/22 Rx Verio test strips) aspirin 81 mg tablet,delayed 81 mg PO DAILY 12/16/22 12/23/22 History release (Adult Low Dose Aspirin) insulin NPH isoph U-100 human 100 20 unit (0.2 mL) SUBCUT .COMPLEX 12/16/22 12/23/22 Rx unit/mL (3 mL) subcutaneous pen #15 mL (Humulin N NPH U-100 Insulin KwikPen) pen needle, diabetic 31 gauge x #100 ea 12/16/22 12/23/22 Rx 1/4 (Lite Touch Insulin Pen [place]) labetalol 100 mg tablet 100 mg PO BID #60 tabs 12/19/22 12/23/22 Rx Allergies Allergy/AdvReac Type Severity Reaction Status Date / Time clavulanic acid AdvReac Unknown HEADACHE, Verified 12/23/22 09:08 [From Augmentin] SENSITIVITY TO LIGHT, NAUSE OB Exam Vital signs Blood Pressure: 138/76 Pulse Rate: 77 Respiratory Rate: 18 Temperature: 35.9 F HENMT Head: normal to inspection Mouth: oral mucosae normal, lip normal, tongue normal and tongue abnormal Eyes General: appearance normal, both eyes and all related structures Other: Equal round and reactive to light, no scleral icterus noted Resp Effort & Inspection: normal respiratory effort and able to speak in complete sentences Auscultation: clear to auscultation bilaterally Cardio Rate: regular rate Rhythm: regular rhythm Heart Sounds: S1 normal and S2 normal Extremities DTR's: Rt Patellar: 1+ and Lt Patellar: 1+ GI Inspection: normal to inspection Palpation: Yes soft and Yes no hepatosplenomegaly Percussion: Yes normal to percussion Auscultation: normal bowel sounds Presentation: vertex (Vertex by ultrasound.) Objective Labs 12/28/22 20:55 12/28/22 20:55 Assessment and Plan Assessment and Plan Assessment and Plan narrative: 1. [age]-year-old G 1p 0 at 37 weeks and 1 day by 1st trimester ultrasound 2. Gestational diabetes utilizing metformin and NPH insulin 20 units in the morning and 38 units at night good control 3. Hypertension. Well controlled with 100 mg of labetalol daily. 4. Hypothyroidism currently on 175 mcg of levothyroxine. Plan: 1 start cervical ripening with 25 mcg of misoprostol orally ultrasound shows to be vertex presentation. 2 continue with her insulin and metformin. Will probably need to change to insulin drip during labor. 3 will obtain CMP as well as protein creatinine ratio looking for evidence of preeclampsia. Time Spent with Patient Total time spent with greater than 50% in coordination of care (as documented) at patient's floor/unit and/or counseling patient:: Greater than 35 minutes (Reviewing Ob history examining patient performing ultrasound entering orders and history and physical)
[2022-12-28] MEDS: miSOPROStoL 25 MCG TABLET PO (20:59)
[2022-12-28 21:07] LABS: Add Manual Diff / Slide Review NO; Basophils Absolute Auto 0 /uL (0-100); Basophils Percent Auto 0.5 % (0-2); Eosinophils Absolute Auto 0 /uL (0-450); Eosinophils Percent Auto 0.3 % (2-4); Hematocrit 29.4 % (36-46); Hemoglobin 9.9 g/dL (12.0-16.0); Lymphocytes Absolute Auto 1800 /uL (1100-4500); Lymphocytes Percent Auto 19.5 % (25-40); Mean Corpuscular HGB Conc 33.8 % (30-36); Mean Corpuscular Hemoglobin 28.8 PG (26-34); Mean Corpuscular Volume 85.2 fL (80-100); Monocytes Absolute Auto 500 /uL (0-900); Monocytes Percent Auto 6.1 % (3-14); Neutrophils Absolute Auto 6600 /uL (1500-7000); Neutrophils Percent Auto 73.6 % (50-75); Platelet Count 225 X10^3/uL (150-400); Red Blood Cell Count 3.44 X10^6/uL (4.0-5.2); Red Cell Distribution Width 15.5 % (11.6-14.8)
--- NOTE | 2022-12-28 21:09 | P.HPOB_ITS ---
OB HPI History of Present Condition Chief complaint: induction Narrative: Lexy Alcantara is a 37 year old female [facility] Medical History Acquired hypothyroidism Anxiety Chicken pox (~1996) Depression (~2017) Foot pain (~2015) Hemorrhoid Hypothyroidism Infertility Irregular menstrual cycle (~2013) Polycystic ovaries Surgical History Anesthesia Lipoma [place] teeth removed (~2002) Family History (Updated 05/13/22 @ 14:13 by Zuri Crawford RN) Father Stroke Family estrangement Agent orange exposure Mother Hypertension Hyperlipidemia Lung cancer Hypothyroidism Grandfather Diabetes mellitus Hypertension Hyperlipidemia Obesity Grandmother Aortic aneurysm Family/Other Thyroid disease Lymphoma Social History marital status: unmarried,living together number of children: 0 household members: spouse lives independently: Yes caregiver/support person: No housing: house pets and animals: Yes (2 cats, 1 dog. 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 (Aware and taking precautions) special hannah needs: No travel history: recent (domestic cross-country move) seatbelt use: always water heater temp set < 120 deg: Yes working smoke detector in home: Yes fire extinguisher in home: Yes carbon monox detector in home: Yes firearms in home: Yes firearms unloaded and locked: Yes do you feel safe at home: Yes Smoking Status: Never smoker second hand exposure: No alcohol intake: former (very rarely when not ) substance use type: marijuana (occasional edibles when not /) during the past year weight has: remained stable well-balanced diet: rarely or never daily servings fruits/ve-4 caffeine: No (quit when she learned she was ) Type(s) of exercise: walking Meds Home Medications and Allergies Home Medications Medication Instructions Recorded Confirmed Type cholecalciferol (vitamin D3) 50 50 mcg PO DAILY 05/13/22 12/23/22 History mcg (2,000 unit) capsule levothyroxine 175 mcg tablet 175 mcg PO DAILY 05/13/22 12/23/22 History prenat.vits,dinesh,ssn-rmcn-sshuo 1 tab PO DAILY 05/13/22 12/23/22 History blood-glucose meter (Blood Glucose #1 ea 09/10/22 12/23/22 Rx Monitoring kit) metformin 500 mg tablet 500 mg PO BID #60 tabs 09/25/22 12/23/22 Rx blood-glucose meter,continuous #1 ea 11/04/22 12/23/22 Rx lancets 33 gauge (TRUEplus Lancets) #300 ea 11/21/22 12/23/22 Rx blood sugar diagnostic (OneTouch #300 strips 12/02/22 12/23/22 Rx Verio test strips) aspirin 81 mg tablet,delayed 81 mg PO DAILY 12/16/22 12/23/22 History release (Adult Low Dose Aspirin) insulin NPH isoph U-100 human 100 20 unit (0.2 mL) SUBCUT .COMPLEX 12/16/22 12/23/22 Rx unit/mL (3 mL) subcutaneous pen #15 mL (Humulin N NPH U-100 Insulin KwikPen) pen needle, diabetic 31 gauge x #100 ea 12/16/22 12/23/22 Rx 1/4 (Lite Touch Insulin Pen [place]) labetalol 100 mg tablet 100 mg PO BID #60 tabs 12/19/22 12/23/22 Rx Allergies Allergy/AdvReac Type Severity Reaction Status Date / Time clavulanic acid AdvReac Unknown HEADACHE, Verified 12/23/22 09:08 [From Augmentin] SENSITIVITY TO LIGHT, NAUSE Objective Labs 12/28/22 20:55 12/28/22 20:55
--- NOTE | 2022-12-28 21:09 | P.HPOB_ITS ---
OB HPI <Genna Mike MD - Last Filed: 12/29/22 12:50> Date/Time Date of admission: 12/28/22 Date Patient Seen: 12/29/22 Time Patient Seen: 09:30 History of Present Condition Chief complaint: induction JAYLENE Calculator Estimated Delivery Date Method Current WG Current Estimate 01/17/23 Manual 37w 3d Patient sta will her cycles are longer than 28 days Other Estimates 01/10/23 LMP (Certain) 38w 3d 01/17/23 Ultrasound #1 37w 3d 01/17/23 Ultrasound #2 37w 3d Estimated Gestational Age (weeks): 37 : 1 Para: 0 Narrative: Patient is a 37-year-old EDC 01/17/2023 at 37 weeks 2 days if brought in for admission for advanced maternal age, insulin-requiring gestational diabetes care: good care, initiated at week # (7), number of visits (11) and pounds weight gain (32) Dating criteria OB: based on 1st trimester US only Ultrasounds: normal mid trimester US Obstetrical complications: gestational diabetes (Insulin-requiring) Medical complications OB: none Indications Indication for induction OB: gestational diabetes (Insulin-requiring) and other (Advanced maternal age) Preadmission Labs Last OB Lab Results: Blood Type A Positive 12/28/22 20:55 Antibody Screen Negative 12/28/22 20:55 Hematocrit 29.4 % (36-46) L 12/28/22 20:55 Hemoglobin 9.9 g/dL (12.0-16.0) L 12/28/22 20:55 Hepatitis B Surface Antigen Negative s/c (NEGATIVE) 06/25/22 14 :00 Hepatitis C Antibody Negative s/c (NEGATIVE) 06/25/22 14:00 Rubella Antibody 12.5 IU/mL (>15) L 06/25/22 14:00 Varicella-Zoster IgG Antibody 974 index (Immune >165) 06/25/22 14:00 Glucose 1 Hour 201 mg/dL (76-139) H 09/10/22 13:10 Group B Streptococcus (PCR) Neg for grp b strep 12/23/22 10:26 -: Chlamydia screen: negative and Gonorrhea screen: negative Genetic Screens: Quad screen: Normal Evaluation <Genna Mike MD - Last Filed: 12/29/22 12:50> Evaluation Baseline heart rate: 125 Variability: Moderate (11-25) monitor accelerations: Present Monitor Decelerations: Absent Contraction Frequency (minutes): 4 Uterine Contraction Intensity: Mild Category of Tracing: Reactive Status: Category l Dilation (cm): 2 Effacement (%): 70 Dilation: 1-2 cm Effacement: >/=80% station: -1 Position of cervix: mid Consistency: soft Neumann score: 9 <Norma Wahl MD - Last Filed: 12/30/22 07:51> Evaluation Neumann score: 9 PFSH <Genna Mike MD - Last Filed: 12/29/22 12:50> Medical History Acquired hypothyroidism Anxiety Chicken pox (~1996) Depression (~2017) Foot pain (~2015) Hemorrhoid Hypothyroidism Infertility Irregular menstrual cycle (~2013) Polycystic ovaries Surgical History Anesthesia Lipoma [place] teeth removed (~2002) Family History (Updated 05/13/22 @ 14:13 by Zuri Crawford RN) Father Stroke Family estrangement Agent orange exposure Mother Hypertension Hyperlipidemia Lung cancer Hypothyroidism Grandfather Diabetes mellitus Hypertension Hyperlipidemia Obesity Grandmother Aortic aneurysm Family/Other Thyroid disease Lymphoma Social History marital status: unmarried,living together number of children: 0 household members: spouse lives independently: Yes caregiver/support person: No housing: house pets and animals: Yes (2 cats, 1 dog. 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 (Aware and taking precautions) special hannah needs: No travel history: recent (domestic cross-country move) seatbelt use: always water heater temp set < 120 deg: Yes working smoke detector in home: Yes fire extinguisher in home: Yes carbon monox detector in home: Yes firearms in home: Yes firearms unloaded and locked: Yes do you feel safe at home: Yes Smoking Status: Never smoker second hand exposure: No alcohol intake: former (very rarely when not ) substance use type: marijuana (occasional edibles when not /) during the past year weight has: remained stable well-balanced diet: rarely or never daily servings fruits/ve-4 caffeine: No (quit when she learned she was ) Type(s) of exercise: walking Meds <Genna Mike MD - Last Filed: 12/29/22 12:50> Home Medications and Allergies Home Medications Medication Instructions Recorded Confirmed Type cholecalciferol (vitamin D3) 50 50 mcg PO DAILY 05/13/22 12/28/22 History mcg (2,000 unit) capsule levothyroxine 175 mcg tablet 175 mcg PO DAILY 05/13/22 12/28/22 History prenat.vits,dinesh,fna-lipf-kqtos 1 tab PO DAILY 05/13/22 12/28/22 History blood-glucose meter (Blood Glucose #1 ea 09/10/22 12/28/22 Rx Monitoring kit) metformin 500 mg tablet 500 mg PO BID #60 tabs 09/25/22 12/28/22 Rx blood-glucose meter,continuous #1 ea 11/04/22 12/28/22 Rx lancets 33 gauge (TRUEplus Lancets) #300 ea 11/21/22 12/28/22 Rx blood sugar diagnostic (OneTouch #300 strips 12/02/22 12/28/22 Rx Verio test strips) aspirin 81 mg tablet,delayed 81 mg PO DAILY 12/16/22 12/28/22 History release (Adult Low Dose Aspirin) insulin NPH isoph U-100 human 100 20 unit (0.2 mL) SUBCUT .COMPLEX 12/16/22 12/28/22 Rx unit/mL (3 mL) subcutaneous pen #15 mL (Humulin N NPH U-100 Insulin KwikPen) pen needle, diabetic 31 gauge x #100 ea 12/16/22 12/28/22 Rx 1/4 (Lite Touch Insulin Pen [place]) labetalol 100 mg tablet 100 mg PO BID #60 tabs 12/19/22 12/28/22 Rx Allergies Allergy/AdvReac Type Severity Reaction Status Date / Time clavulanic acid AdvReac Unknown HEADACHE, Verified 12/23/22 09:08 [From Augmentin] SENSITIVITY TO LIGHT, NAUSE Review of Systems <Genna Mike MD - Last Filed: 12/29/22 12:50> Review of Systems Narrative: Patient with no ruptured membranes. No headaches, scotomata, epigastric pain. Good movement. No vaginal bleeding. OB Exam <Genna Mike MD - Last Filed: 12/29/22 12:50> Vital signs Blood Pressure: 138/76 Pulse Rate: 73 Temperature: 97.0 F Narrative Exam Narrative: HEENT exam within normal limits. Lungs are clear to auscultation and percussion. Cor is regular rate and rhythm no S3-S4 murmurs. No thyromegaly. Abdomen is gravid. Fetus is vertex. Extremities with trace edema and nontender. Objective <Genna Mkie MD - Last Filed: 12/29/22 12:50> Labs 12/28/22 20:55 12/28/22 20:55 Assessment and Plan <Genna Mike MD - Last Filed: 12/29/22 12:50> Assessment and Plan Assessment and Plan narrative: 37 week 2 day gestation admitted for induction for insulin requiring diabetes and advanced maternal age here for induction. Patient received Cytotec overnight. Midnight glucose level 89. Current glucose level 101. Discussion of possible Mosqueda bulb versus Pitocin induction. Time Spent with Patient Total time spent with greater than 50% in coordination of care (as documented) at patient's floor/unit and/or counseling patient:: less than 15 minutes
[2022-12-28 21:28] LABS: Alanine Aminotransferase 26 IU/L (<35); Albumin 3.3 g/dL (3.5-5.0); Albumin Globulin Ratio 0.9 (1.0-2.8); Alkaline Phosphatase 107 U/L (38-126); Aspartate Aminotransferase 21 IU/L (14-36); BUN Creatinine Ratio 22.4 (6-22); Bilirubin Total 0.2 mg/dL (0.2-1.3); Blood Urea Nitrogen 15 mg/dL (7-17); Calcium 9.6 mg/dL (8.4-10.2); Carbon Dioxide 22 mmol/L (22-32); Chloride 104 mmol/L (98-107); Estimated Glomerular Filt Rate > 60 mL/min (>60); Globulin 3.6 g/dL (1.7-4.1); Glucose 85 mg/dL (70-100); HEMOLYSIS < 15 (0-50); Potassium 4.1 mmol/L (3.4-5.1); Sodium 133 mmol/L (137-145); Total Protein 6.9 g/dL (6.3-8.2)
[2022-12-28 21:33] VITALS: BP 138/76; PULSE 77; RESP 18; TEMP 2.2; TEMP 35.9
[2022-12-28 22:12] LABS: Creatinine Urine Random 40.1 mg/dL; Protein (Total) Urine Random 8 mg/dL (0-12); Protein Creatinine Ratio Urine 0.19 GRAM/24H
[2022-12-28] MEDS: LABETALOL 100 MG TABLET PO (22:16)
[2022-12-29] MEDS: miSOPROStoL 25 MCG TABLET PO ×2 (01:00→05:00)
[2022-12-29] MEDS: LEVOTHYROXINE 100 MCG TABLET PO (06:53)
[2022-12-29] MEDS: LEVOTHYROXINE 75 MCG TABLET PO (06:53)
[2022-12-29 08:55] VITALS: BP 138/76; PULSE 80
[2022-12-29] MEDS: LABETALOL 100 MG TABLET PO ×2 (08:55→20:45)
[2022-12-29] MEDS: METFORMIN HCL 500 MG TABLET PO ×2 (08:56→18:21)
--- NOTE | 2022-12-29 09:48 | PM.PROC.1 ---
Procedures Date/Time Date of procedure: 12/29/22 Time of procedure: 09:49 General Procedure description: Mosqueda balloon for induction. Patient had Cytotec overnight for induction for insulin-dependent diabetes. Her cervix was 1 cm dilated 50% effaced. Discussed options of further induction with patient and she is agreeable to do a Mosqueda balloon. A speculum was placed in the vagina and the Mosqueda balloon placed with the balloon inflated to 60 cc. During the placement that patient's external os was 4 cm in internal os 2 cm. Cervix was 75% effaced.-1 station. With inflating the balloon the balloon catheter broke. Decision was made to just start Pitocin rather than try to replace the balloon. Blood pressure 138/76, pulse 73, temperature 36.1?. Patient has had 2 random glucose levels. 8:30 a.m. glucose 101.
[2022-12-29] MEDS: LACTATED RINGERS 1,000 ML 100 ML IV (10:28)
[2022-12-29] MEDS: OXYTOCIN PREMIX 30 UNIT/500 ML PLAST..BAG IV (10:28)
[2022-12-29 12:50] VITALS: BP 138/76; PULSE 73; TEMP 36.1
--- NOTE | 2022-12-29 14:58 | PM.OBPNLAB ---
Date/Time Date Patient Seen: 12/29/22 Time Patient Seen: 14:59 Pain Control Pain control: tolerating well Pelvic Exam Dilation (cm): 3 Effacement (%): 70 station: -1 Amniotic membrane status: Intact Contractions Monitor mode: External Pitocin rate (mU/min): 12 Contraction frequency (min): 3 Contraction duration (min): 1 Contraction pattern: Regular Contraction intensity: Moderate Status status: Category l Heart Rate Baseline: 120 Monitor Accelerations: Present Monitor Decelerations: Absent Monitor Variability: Moderate Assessment and Plan Assessment: induction ongoing Plan: continuous present management
--- NOTE | 2022-12-29 17:33 | PM.OBPNLAB ---
Date/Time Date Patient Seen: 12/29/22 Time Patient Seen: 17:34 Pain Control Pain control: tolerating well Pelvic Exam Dilation (cm): 3 Effacement (%): 80 station: -1 Amniotic membrane status: Intact Contractions Contractions on admission: regular Monitor mode: External Pitocin rate (mU/min): 18 Contraction frequency (min): 3 Contraction duration (min): 1 Contraction pattern: Regular Contraction intensity: Moderate Status status: Category l Heart Rate Baseline: 130 Monitor Accelerations: Present Monitor Decelerations: Absent Monitor Variability: Moderate Assessment and Plan Assessment: induction ongoing Plan: other Comments: Patient with no significant progress in labor despite Pitocin all day and Pitocin at 18 units. Will stop Pitocin for now allow patient to eat due to diabetes and rest. Restart Pitocin morning if she does not go into spontaneous labor.
[2022-12-29] MEDS: IRON SUCROSE 200 MG in SODIUM CHLORIDE 0.9% 100 ML 220 MG IV (20:28)
[2022-12-29 20:45] VITALS: BP 141/83
[2022-12-29] MEDS: INSULIN NPH 100 UNIT/ML 10ML VIAL 38 UNIT SUBCUT (20:45)
[2022-12-30] MEDS: LEVOTHYROXINE 100 MCG TABLET PO (06:12)
[2022-12-30] MEDS: LEVOTHYROXINE 75 MCG TABLET PO (06:12)
[2022-12-30] MEDS: METFORMIN HCL 500 MG TABLET PO (07:46)
--- NOTE | 2022-12-30 07:51 | PM.OBPNLAB ---
Date/Time Date Patient Seen: 12/30/22 Time Patient Seen: 07:52 Pain Control Pain control: tolerating well Comments: Pitocin all day yesterday shut off last night due to no cervical change. She was 3-4 cm at that time Pelvic Exam Dilation (cm): 3 Effacement (%): 80 station: -1 Amniotic membrane status: Intact Comments: Fasting blood sugars 78, NPH held Contractions Monitor mode: External Contraction frequency (min): 10 Contraction pattern: Regular Contraction intensity: Mild Status status: Category l Heart Rate Baseline: 122 Monitor Accelerations: Present Monitor Decelerations: Absent Monitor Variability: Moderate Assessment and Plan Assessment: induction ongoing Comments: Restart Pitocin Artificial rupture of membranes mid morning Expected management to spontaneous vaginal delivery
[2022-12-30] MEDS: LABETALOL 100 MG TABLET PO (09:04)
[2022-12-30] MEDS: OXYTOCIN PREMIX 30 UNIT/500 ML PLAST..BAG IV (09:06)
--- NOTE | 2022-12-30 10:57 | PM.OBPNLAB ---
Date/Time Date Patient Seen: 12/30/22 Time Patient Seen: 10:30 Pain Control Pain control: tolerating well Pelvic Exam Dilation (cm): 4 Effacement (%): 80 station: -1 Amniotic membrane status: Intact Contractions Contractions on admission: none Monitor mode: External Pitocin rate (mU/min): 8 Contraction frequency (min): 3 Contraction duration (min): 1 Contraction pattern: Regular Contraction intensity: Moderate Status status: Category l Heart Rate Baseline: 128 Monitor Accelerations: Present Monitor Decelerations: Absent Monitor Variability: Moderate Assessment and Plan Assessment: active labor Comments: AROM with clear amniotic fluid Expectant management to Con't q 2 hour BS's
[2022-12-30] MEDS: LACTATED RINGERS 1,000 ML 100 ML IV ×2 (11:59→14:20)
--- NOTE | 2022-12-30 17:32 | PM.ANES.PR ---
Operative Date/Time/Diagnoses Date of procedure: 12/30/22 Time of procedure: 13:36 Pre-op diagnosis: labor pain Post-op diagnosis: same Note requesting labor epidural for labor pain
--- NOTE | 2022-12-30 17:34 | P.PCN_ITS ---
Regional Block Pre-procedure Procedure: Continuous Lumbar Epidural for L&D Attending OB provider: Norma Wahl PMH/ROS narrative: Patient is a requesting labor epidural for labor pain Hx: No personal or family history of anesthesia problems. Exam narrative: mallampati: 2 , good neck ROM, T.M. > 3 cm ASA Class: III Labs: Hct 29.4 % (36-46) L 12/28/22 20:55 Plt Count 225 X10^3/uL (150-400) 12/28/22 20:55 Medications: Current Medications Generic Name Dose Route Start Last Admin Trade Name Freq PRN Reason Stop Dose Admin Acetaminophen 650 mg 12/28/22 20:26 Acetaminophen 325 Mg Tablet PO Q4HR PRN Fever/Mild Pain (1-3) Calcium Carbonate 500 mg 12/28/22 20:26 Calcium Carbonate 500 Mg Tab PO Q2H PRN Dyspepsia Carboprost Tromethamine 250 mcg 12/28/22 23:46 Carboprost 250 Mcg/Ml Ampul IM Q90M PRN Bleeding Diphenhydramine HCl 25 mg 12/30/22 14:55 Diphenhydramine 50 Mg/Ml Vial IV Q10M PRN Pruritis Lactated Ringer's 1,000 mls @ 100 mls/hr 12/28/22 20:30 12/30/22 14:20 Lactated Ringers IV 100 mls/hr CONT HOLGER Administration Oxytocin/Lactated Ringer's 30 unit in 500 mls @ 200 mls/hr 12/28/22 23:46 Oxytocin Premix IV CONT PRN Bleeding Protocol Tranexamic Acid 1,000 mg/ 100 mls @ 200 mls/hr 12/28/22 23:46 Sodium Chloride IV NOW PRN Bleeding Oxytocin/Lactated Ringer's 30 unit in 500 mls @ 2 mls/hr 12/29/22 09:36 12/30/22 09:06 Oxytocin Premix IV 2 milliunit/min TITRATE HOLGER 2 mls/hr Administration Protocol 2 MILLIUNIT/MIN Bupivacaine HCl 25 ml/ Sodium 100 mls @ 6 mls/hr 12/30/22 15:00 Chloride EPIDURAL CONT HOLGER Insulin Human NPH 20 unit 12/29/22 08:00 12/30/22 07:26 Insulin Nph 100 Unit/Ml 10ml Vial SUBCUT Not Given DAILY HOLGER Insulin Human NPH 38 unit 12/29/22 20:00 12/29/22 20:45 Insulin Nph 100 Unit/Ml 10ml Vial SUBCUT 38 unit BEDTIME HOLGER Administration Labetalol HCl 100 mg 12/28/22 21:00 12/30/22 09:04 Labetalol 100 Mg Tablet PO 100 mg BID HOLGER Administration Levothyroxine Sodium 75 mcg 12/29/22 06:45 12/30/22 06:12 Levothyroxine 75 Mcg Tablet PO 75 mcg DAILY@0600 HOLGER Administration Levothyroxine Sodium 100 mcg 12/29/22 07:00 12/30/22 06:12 Levothyroxine 100 Mcg Tablet PO 100 mcg DAILY@0600 [facility] Administration Lidocaine HCl 20 ml 12/28/22 23:46 Lidocaine 1% 20 Ml INJ INTRA-OP PRN Post Delivery Metformin HCl 500 mg 12/29/22 08:00 12/30/22 07:46 Metformin Hcl 500 Mg Tablet PO 500 mg 0800,1700 [facility] Administration Methylergonovine Maleate 0.2 mg 12/28/22 23:46 Methylergonovine 0.2 Mg Tablet PO Q6HR PRN Heavy Bleeding Methylergonovine Maleate 0.2 mg 12/28/22 23:46 Methylergonovine 0.2 Mg/Ml Vial IM NOW PRN Bleeding Misoprostol 25 mcg 12/28/22 20:45 12/29/22 05:00 Misoprostol 25 Mcg Tablet PO 25 mcg Q4H [facility] Administration Misoprostol 800 mcg 12/28/22 23:46 Misoprostol 200 Mcg Tablet WI NOW PRN Bleeding Misoprostol 400 mcg 12/28/22 23:46 Misoprostol 200 Mcg Tablet SL NOW PRN Bleeding Nalbuphine HCl 2.5 mg 12/30/22 14:55 Nalbuphine 20 Mg/Ml Ampul IV Q10M PRN Pruritis Naloxone HCl 0.2 mg 12/28/22 23:46 Naloxone 0.4 Mg/Ml Vial IV Q2MIN PRN Opiate Reversal Ondansetron HCl 4 mg 12/28/22 23:46 Ondansetron 4 Mg/2 Ml Inj IV Q4HR PRN Nausea And Vomiting Oxytocin 10 unit 12/28/22 23:46 Oxytocin 10 Unit/Ml Vial IM NOW PRN Bleeding Zolpidem Tartrate 5 mg 12/29/22 17:37 Zolpidem 5 Mg Tablet PO BEDTIME PRN Sleep Allergies: Allergies Allergy/AdvReac Type Severity Reaction Status Date / Time clavulanic acid AdvReac Unknown HEADACHE, Verified 12/23/22 09:08 [From Augmentin] SENSITIVITY TO LIGHT, NAUSE Procedure Insertion date: 12/30/22 Insertion time: 13:36 Prep/Local: 1% lidocaine (Prep with Chloroprep) Interspace: L4-5 Patient position: sitting Needle: 18 gauge Hustead Loss of resistance with: saline WILD at (cm): 10 Catheter placed at SKIN (cm): 15 Catheter in SPACE (cm): 5 Sensory level: T10 Insertion: No CSF, No Blood, No Paresthesia with insertion, No Paresthesia with injection and No Test dose reaction Initial Medications TEST DOSE time: 13:56 TEST DOSE: 1.5% lidocaine with epinephrine 1:200k (mL): 5 BOLUS DOSE time: 13:57 BOLUS DOSE (mL): 5 BOLUS DOSE med: other (2% Lidocaine) Infusion INFUSION: 0.125% bupivacaine and with fentanyl 2 mcg/mL Initial rate (mL/hr): 10 Subsequent interventions: 18:20: Decision for c- section 2/2 intolerance of labor. Patient states epidural working well for labor, denies pain, just pressure from contractions. Plan to use epidural for , patient in agreement. Post-procedure Anesthesia time START: 13:36 Anesthesia time END: 19:01 Post-procedure Anesthesia Assessment: Yes CV function: HR/BP stable, Yes Resp function: RR/sat/airway adequate, Yes Post-op hydration adequate, Yes Pain control adequate, Yes Nausea & vomiting absent, Yes Temperature > 36 C and Yes Mental status appropriate
--- NOTE | 2022-12-30 18:16 | PM.OBPNLAB ---
Date/Time Date Patient Seen: 12/30/22 Time Patient Seen: 18:16 Pain Control Pain control: epidural Pelvic Exam Dilation (cm): 10 Effacement (%): 100 station: +1 (With pushing) Amniotic membrane status: Ruptured Contractions Contractions on admission: none Monitor mode: External Pitocin rate (mU/min): 14 Contraction frequency (min): 3 Contraction duration (min): 1 Contraction pattern: Regular Contraction intensity: Strong/Firm Status status: Category ll Heart Rate Baseline: 130 Monitor Accelerations: Present Monitor Decelerations: Variable (deep) Monitor Variability: Minimal Comments: Brisk bright red vaginal bleeding Assessment and Plan Assessment: active labor Plan: Comments: Assessment: Deep variable decels Brisk vaginal bleeding Plan: Primary The risks, benefits, and alternatives to the procedure were explained to the patient. The risks including bleeding, infection, injury to the bowel, bladder, or ureters. She understands these risks and agrees to proceed. A full par Q was held and consent form was signed. Peds and RT notified
--- NOTE | 2022-12-30 18:22 | PM.PREOP ---
Pre-operative Note COVID-19 Criteria for continued procedure: Non-surgical alternatives not available or appropriate per current SOC Interval Note History & Physical reviewed/Exam performed by Physician: Yes Changes to H&P: No H&P completed within 30 days and has changed as indicated here:: 12/28/22
[2022-12-30] MEDS: CITRIC ACID/SODIUM CITRATE 15 ML SOLUTION 30 ML PO (18:39)
--- NOTE | 2022-12-30 18:46 | SUR.OPER ---
Supine on Padded OR bed, head on pillow, safety belt at thigh, arms secured on padded arm boards at <90 degrees abduction. Bump under right buttock. Legs uncrossed with pillow under knees, gel pad to heels, tape over blanket to lower legs.
[2022-12-30] MEDS: AZITHROMYCIN 500 MG in DEXTROSE 5% IN WATER 250 ML 250 MG IV (19:10)
[2022-12-30] MEDS: CEFAZOLIN VIAL 3 GM in SODIUM CHLORIDE 0.9% 100 ML IV (19:25)
--- NOTE | 2022-12-30 19:38 | SUR.OPER ---
Addendum entered by Evette Gaviria R.N. 12/30/22 19:42: Correction: born at 1934 Original Note: Live male infant born at [birth year]
--- NOTE | 2022-12-30 20:19 | P.OP_ITS ---
Operative Date/Time/Diagnoses Date of procedure: 12/30/22 Time of procedure: 20:19 Pre-op diagnosis: 37-3/7 weeks gestation intolerance of labor in the second stage Brisk bright red vaginal bleeding during pushing Post-op diagnosis: same Procedure & Clinicians Procedure: Primary low-transverse section Same procedure as scheduled: Yes Indications: Patient is a 37-year-old 1 para 0 at 37-,3/7 weeks gestation who presented for induction of labor on December 28, 2022. She received cervical ripening. She received Pitocin on December 29, 2022. She had no cervical change beyond 3 cm. The Pitocin was discontinued overnight. Pitocin was restarted on December 31, 2022. She progressed in active labor. Artificial rupture of membranes was performed. She progressed to complete dilation and had been pushing for 1 hour when there were deep variable decelerations with pushing and brisk right red vaginal bleeding. A decision was made to proceed with a primary low-transverse section. Surgeon: Norma Adams Yes if Unassisted: No Cafeteria Or Lunchroom Checker: Ingrid Christian Reason for Cafeteria Or Lunchroom Checker: The workforce development assistant was necessary to retract upon entry into the abdomen and uterus. She assisted with delivery of the infant with fundal pressure. She assisted with closure with retraction, clipping of suture, and closure of the contralateral fascia. Anesthesia Type: Spinal (With Duramorph) Operative Notes Findings: Live male infant in the [place]BECCA presentation, asynclitic Tight cord over shoulder and between the legs Normal uterus, tubes and ovaries No placental abruption visualized Terminal meconium Closure Type: primary Specimen(s): cord blood, cord pH and placenta Intraoperative meds administered: Acetaminophen, Duramorph, Ketorolac and Pitocin Applied: Catheter (To continuous drainage) Estimated Blood Loss (mL): 350 Blood products transfused: none Procedure in detail: The patient was taken to the operating room where she was placed in the dorsal supine position with a leftward tilt. She was prepped and draped in the usual sterile fashion. A timeout was performed. After spinal analgesia was found to be adequate, a Pfannenstiel skin incision was made 2 fingerbreadths above the pubic symphysis and carried through to the underlying layer fascia. The fascia was nicked in the midline, and the incision extended bilaterally with the Gruber scissors. The superior aspect of the fascial incision was grasped with a Hannibal clamps, elevated, and the underlying rectus muscles dissected off sharply and bluntly. Attention was then turned to the inferior aspect of this incision which in a similar fashion was grasped with a Hannibal clamps, elevated, and the underlying rectus muscles dissected off sharply and bluntly. The rectus muscles were in the midline. The peritoneum was identified, grasped between 2 hemostats, and entered sharply with the Metzenbaum scissors. This incision was extended superiorly and inferiorly with good visualization of the bladder. The large Rell was placed into the incision. The vesicouterine peritoneum was identified, grasped with the pickup, and entered sharply with the Metzenbaum scissors. This incision was extended bilaterally, and the bladder flap was created digitally. The lower uterine segment was incised in a transverse fashion with the scalpel. Upon entering the amniotic sac there was a small amount of meconium-stained amniotic fluid. The infant was delivered by total breech extraction. The nose and mouth were suctioned with bulb suction. The cord was found to be across the right shoulder and down between the baby's legs and was tight. The cord was double clamped and cut. A piece of cord for cord pH was obtained. The infant was handed off to waiting RN and RT. Pitocin was given in the IV fluids. The placenta was delivered by expression. The uterus was cleared of all clots and debris. The uterine incision was repaired with #1 chromic in a running interlocking fashion, and a second layer the same suture was used for an imbricating layer. Hemostasis was achieved. The tubes and ovaries were examined and were found to be normal. The gutters were cleared of all clots and debris. The bladder flap was reapproximated using 2-0 Vicryl in a running fashion. The parietal peritoneum was closed using 2-0 Vicryl in a running fashion. The fascia was reapproximated using 0 Vicryl in a running fashion. The subcutaneous layer was copiously irrigated with warm normal saline. 6 simple interrupted sutures of 3-0 Vicryl were placed to reapproximate the subcutaneous layer. The skin was closed with 4-0 Monocryl in a subcuticular fashion. Steri-Strips were placed. An Aquacel dressing was placed. The uterus was expressed of a small amount of old blood. Sponge, lap, and instrument counts were correct x-2. The patient tolerated the procedure well, and was taken to PACU in stable condition. Complications: none [place] Baby 1: Infant Gender: Male Presentation: vertex Position: Left Occiput Anterior (asynclitic) Placental Delivery Description: Expressed Cord Vessel Description: 3 Vessels, Clamped/Cut and Around Body x1 (Shoulder to groin) score (1 min): 7 score (5 min): 9 weight: 7 lb 12.7 oz Post-operative Condition: stable Disposition: PACU Aftercare: routine postop
[2022-12-30 20:23] VITALS: BP 144/77; PULSE 82; RESP 17; TEMP 36.3; O2SAT 98
[2022-12-30 20:28] VITALS: BP 149/79; PULSE 85; RESP 18; O2SAT 99
[2022-12-30 20:33] VITALS: BP 144/85; PULSE 80; RESP 16; O2SAT 99
[2022-12-30] MEDS: ACETAMINOPHEN 325 MG TABLET 650 MG PO (21:35)
--- NOTE | 2022-12-30 23:11 | PC.NURSE ---
labetolol po given at 2130. computer shut off after RN scanned and completed medication administration. Apparently with the shut off the documentation did not save. RN did not notice until reviewing orders at 2300.
[2022-12-31] MEDS: LANOLIN OINT 7 GM 1 APPLIC TOP (01:54)
[2022-12-31] MEDS: KETOROLAC 30 MG/ML VIAL IV ×3 (01:55→14:09)
[2022-12-31] MEDS: ACETAMINOPHEN 325 MG TABLET 650 MG PO ×3 (04:22→17:57)
[2022-12-31] MEDS: LEVOTHYROXINE 75 MCG TABLET PO (05:47)
[2022-12-31] MEDS: LEVOTHYROXINE 100 MCG TABLET PO (05:47)
[2022-12-31 06:37] LABS: Add Manual Diff / Slide Review NO; Basophils Absolute Auto 0 /uL (0-100); Basophils Percent Auto 0.3 % (0-2); Eosinophils Absolute Auto 0 /uL (0-450); Eosinophils Percent Auto 0.2 % (2-4); Hemoglobin 9.1 g/dL (12.0-16.0); Lymphocytes Absolute Auto 2300 /uL (1100-4500); Lymphocytes Percent Auto 21.7 % (25-40); Mean Corpuscular HGB Conc 33.8 % (30-36); Mean Corpuscular Hemoglobin 28.9 PG (26-34); Mean Corpuscular Volume 85.6 fL (80-100); Monocytes Absolute Auto 600 /uL (0-900); Monocytes Percent Auto 5.9 % (3-14); Neutrophils Absolute Auto 7800 /uL (1500-7000); Neutrophils Percent Auto 71.9 % (50-75); Platelet Count 206 X10^3/uL (150-400); Red Blood Cell Count 3.15 X10^6/uL (4.0-5.2); White Blood Cell Count 10.8 X10^3/uL (4.5-11.0)
[2022-12-31] MEDS: DOCUSATE 100 MG CAPSULE PO (08:40)
[2022-12-31] MEDS: PRENATAL VIT,CALC/IRON/FOLIC 1 TABLET 1 TAB PO (08:40)
--- NOTE | 2022-12-31 09:41 | PM.OBPN.1 ---
Subjective - OB Subjective Patient comments: no complaints and tolerating diet [place] baby status: doing well and other (Some issues) [place] feeding status: exclusively breast feeding Date Patient Seen: 12/31/22 Time Patient Seen: 09:42 Interval history: Postop day # 0-1 status post emergent primary low-transverse section due to intolerance of second stage of labor and brisk bright red vaginal bleeding. Mosqueda catheter still in place. Patient has not been out of bed yet, that is to happen soon. Blood pressure has been running on the low side. We are awaiting blood sugar results. Exam Vital Signs (past 8 hours): Oxygen Delivery Method Room Air Narrative Exam Narrative: Generally: Patient lying in bed, no acute distress Fundus: Firm at U -1 Incision: Clean dry and intact with Aquacel dressing Extremities: SCDs in place Objective Labs 12/31/22 06:25 12/28/22 20:55 Labs: Laboratory Results - last 24 hr 12/31/22 06:25 WBC 10.8 RBC 3.15 L Hgb 9.1 L Hct 27.0 L MCV 85.6 MCH 28.9 MCHC 33.8 RDW 15.0 H Plt Count 206 Neut % (Auto) 71.9 Lymph % (Auto) 21.7 L [place] % (Auto) 5.9 Eos % (Auto) 0.2 L Baso % (Auto) 0.3 Neut # (Auto) 7800 H Lymph # (Auto) 2300 [place] # (Auto) 600 Eos # (Auto) 0 Baso # (Auto) 0 Assessment & Plan Plan day: 1 plan OB: routine postop care Time Spent With Patient Time: Total time spent is greater than 50% in coordination of care (as documented) at patient's floor/unit and/or counseling patient: Time with patient: 15-24 minutes
[2022-12-31 20:43] VITALS: TEMP 36.8
[2022-12-31] MEDS: IBUPROFEN 600 MG TABLET PO (20:43)
[2023-01-01] MEDS: ACETAMINOPHEN 325 MG TABLET 650 MG PO ×3 (00:04→12:49)
[2023-01-01] MEDS: IBUPROFEN 600 MG TABLET PO ×3 (02:34→14:09)
[2023-01-01] MEDS: LIDOCAINE 2% (GLYDO) 6 ML GEL TOP (02:44)
[2023-01-01] MEDS: LEVOTHYROXINE 100 MCG TABLET PO (06:04)
[2023-01-01] MEDS: LEVOTHYROXINE 75 MCG TABLET PO (06:04)
[2023-01-01] MEDS: DOCUSATE 100 MG CAPSULE PO (08:04)
[2023-01-01] MEDS: OXYCODONE IR 5 MG TABLET PO ×2 (08:04→14:14)
[2023-01-01] MEDS: PRENATAL VIT,CALC/IRON/FOLIC 1 TABLET 1 TAB PO (08:04)
[2023-01-01 11:43] VITALS: BP 125/67; PULSE 82; RESP 18; TEMP 37.3
[2023-01-01] MEDS: MEASLES,MUMPS,RUBELLA VACC/PF 0.5 ML VIAL SUBCUT (14:09)
--- NOTE | 2023-01-03 12:48 | PM.OBDS.1 ---
Discharge Providers Provider Date of admission: 12/28/22 19:42 Discharge Date: 01/01/23 Primary care physician: Holly Siddiqui PA-C Consults: 12/28/22 23:47 Consult to Anesthesiology Urgent Comment: Consulting Provider: David Klein Reason for consultation: Epidural 12/30/22 21:17 Consult to Manager [employer] Routine Comment: Discharge provider: Norma Wahl MD Summary Hospital Course Date Patient Seen: 01/01/23 Time Patient Seen: 09:30 Diagnoses: 37-3/7 weeks gestation Gestational diabetes requiring insulin Gestational hypertension Cervical ripening with Cervidil Pitocin induction of labor Artificial rupture of membranes Epidural analgesia Primary low-transverse section intolerance of labor Hospital Course: Patient is a 37-year-old 1 para 1 who presented on December 28, 2022 in the evening for cervical ripening with Cervidil. She was being induced for gestational hypertension requiring insulin and gestational hypertension. She received 1 dose of Cervidil. On the morning of December 29, 2022 she was started on Pitocin. She progressed to 3 cm through the day but no further. Pitocin was discontinued overnight. It was restarted on the morning of December 30, 2022. Artificial rupture membranes was performed. She received an epidural for pain management. She got to complete dilation and with pushing she was having deep variable decelerations and then started having brisk bright red vaginal bleeding. A decision was made to proceed to a primary low-transverse section. She underwent this procedure without complication. On postop day # 1, her catheter was removed. She was able to void spontaneously. She was ambulating independently. She was tolerating a diet. Bleeding was tapering. going well. She was discharged home on postop day # 2. She will follow-up at 1 week for Aquacel dressing removal. Peripartum Data Delivery Method: Emergency Section Procedures: Cervidil cervical ripening Pitocin induction of labor Artificial rupture of membranes Epidural analgesia Emergent Primary low-transverse section complications: none [place] 1: Gender: Male Disposition of : home Status at Discharge Cognitive/behavioral status at discharge: oriented Functional status at discharge: independent ambulation Overall status at discharge: patient is progressing back to baseline Time Spent with Patient Time attestation: Total time spent providing and/or coordinating discharge services: Time spent: Less than 30 minutes Objective Labs 12/31/22 06:25 12/28/22 20:55 Exam Vital Signs (past 8 hours): Oxygen Delivery Method Room Air Narrative Exam Narrative: Generally: Patient walking around in room, no acute distress Fundus: Firm at U -1 Incision: Clean dry and intact with Aquacel dressing Extremities: Trace edema, negative [place] Discharge Plan Discharge Plan Patient Disposition: Home Provider Discharge Comment: Call with fever, chills, redness or drainage around the incision, or bleeding vaginally more than a pad in an hour Ibuprofen 600 mg every 6 hours as needed Tylenol 650 mg every 6 hours as needed Stool softeners until bowel returns to normal Push oral fluids Restart labetalol 100 mg twice a day for blood pressures systolic 140 or greater, or diastolic 90 or greater Discharge orders & Medications Prescriptions: New oxycodone 5 mg tablet 5 mg PO Q4H PRN (Reason: pain) Qty: 20 0RF hydrocortisone [Anusol-HC] 2.5 % cream with perineal applicator 1 applic MT BID-QID PRN (Reason: hemorrhoids) Qty: 30 2RF Continued labetalol 100 mg tablet 100 mg PO BID Qty: 60 0RF levothyroxine 175 mcg tablet 175 mcg PO DAILY prenat.vits,dinesh,gps-[id number] Tablet 1 tab PO DAILY cholecalciferol (vitamin D3) 50 mcg (2,000 unit) capsule 50 mcg PO DAILY Discontinued metformin 500 mg tablet 500 mg PO BID Qty: 60 5RF Humulin N NPH Insulin KwikPen 100 unit/mL (3 mL) insulin pen 20 unit SUBCUT .COMPLEX Qty: 15 1RF Rx Instructions: Inject 20 Units subcutaneously every AM and 38 Units every PM aspirin [Adult Low Dose Aspirin] 81 mg tablet,delayed release (DR/EC) 81 mg PO DAILY No Action (DME) blood-glucose meter [Blood Glucose Monitoring] Kit See Rx Instructions .ROUTE .MEDSUPPLY Qty: 1 0RF Rx Instructions: Check blood sugar fasting and 2 hours after each meal (DME) blood-glucose meter,continuous Misc See Rx Instructions .Route Qty: 1 0RF Rx Instructions: Monitor BS while using insulin (DME) lancets [TRUEplus Lancets] 33 gauge misc See Rx Instructions .ROUTE .COMPLEX Qty: 300 2RF Dose Instruction: USE DIRECTED 4 TIMES DAILY Rx Instructions: USE DIRECTED 4 TIMES DAILY (DME) OneTouch Verio test strips Strip See Rx Instructions .ROUTE .COMPLEX Qty: 300 3RF Dose Instruction: PLEASE USE FOR FASTING AND 2 HOURS POST MEAL 4 TIMES DAILY Rx Instructions: PLEASE USE FOR FASTING AND 2 HOURS POST MEAL 4 TIMES DAILY (DME) pen needle, diabetic [Lite Touch Insulin Pen [place]] 31 gauge x 1/4 needle See Rx Instructions .Route Qty: 100 3RF Rx Instructions: Use daily with NPH insulin Follow up/Referrals: Norma Wahl MD [Physician] - 1 Week (Please follow up with Dr. Wahl for a 1 week incision check on January 06 @ 3:00PM. On February 10, pleasef ollow up with Dr. Wahl for your 6-week post- check-up @ 1:15PM. ) Diet/Activity/Treatments Diet: Regular Activity: No heavy lifting, nothing more than the baby Nothing in the vagina for 6 weeks Skin/Wound/Dressing Care Report to your healthcare provider any signs of infection, such as:: chills, fever, increased pain, unusual drainage and unusual redness Dressing: Do not remove Visit Report/Discharge Packet Instructions: DI for , DI for Prescription Opioid Use Stand Alone Forms: Discharge: Care, Patient Portal/API, Stroke Signs & Symptoms Discharge Data Primary Care Provider: Holly Siddiqui Discharges patient from system. Discharge Date/Time: 01/01/23 15:20
== END 2023-01-01 15:20 | disposition home or self-care (01) | DRG 788 ==
PROVIDERS: Obstetrics & Gynecology; Admitting Provider Obstetrics & Gynecology; Family Provider Physician Assistant; PCP Physician Assistant; Referring Provider Obstetrics & Gynecology; Visit Provider Obstetrics & Gynecology
PROC: 10D00Z1 Extraction of Products of Conception, Low, Open Approach (ICD-10-PCS; CPT 59514; principal; 2022-12-30 18:30)
DX: O76 Abnormality in fetal heart rate and rhythm complicating labor and delivery (principal); Z3A.37 37 weeks gestation of pregnancy; Z37.0 Single live birth; Z67.10 Type A blood, Rh positive; O99.284 Endocrine, nutritional and metabolic diseases complicating childbirth; E03.9 Hypothyroidism, unspecified; O13.4 Gestational [pregnancy-induced] hypertension without significant proteinuria, complicating childbirth; O24.424 Gestational diabetes mellitus in childbirth, insulin controlled
CPT/HCPCS: 36415; 59050; 59200; 59510; 59514; 76815; 80053; 82570; 82962; 84156; 85025; 86850; 86900; 86901; G0379; J0690; J1756; J1885; J2274; J2590; J3010

== ENCOUNTER → 2023-03-17 09:54 | Outpatient (CLI) | payer OTHER, SELFPAY ==
[2023-03-17 11:01] LABS: Glucose Fasting 102 mg/dL (70-100)
[2023-03-17 11:19] LABS: T4 Total Thyroxine 6.92 ug/dL (5.5-11.0)
[2023-03-17 11:32] LABS: Thyroid Stimulating Hormone 6.72 uIU/mL (0.47-4.68)
[2023-03-17 12:12] LABS: Glucose Tol Interpretation INTERPRETATION
[2023-03-17 12:26] LABS: Glucose 1 Hour 186 mg/dL (70-170)
[2023-03-17 12:58] LABS: Glucose 2 Hour 157 mg/dL (70-140)
[2023-03-18 12:32] LABS: Free T4, Direct Thyroxine 0.94 ng/dL (0.78-2.19)
== END ==
PROVIDERS: Family Provider Physician Assistant; PCP Physician Assistant; Referring Provider Obstetrics & Gynecology; Visit Provider Obstetrics & Gynecology
DX: E03.9 Hypothyroidism, unspecified (principal); O24.414 Gestational diabetes mellitus in pregnancy, insulin controlled
CPT/HCPCS: 36415; 82951; 82952; 84436; 84439; 84443

== ENCOUNTER → 2024-01-20 12:55 | Outpatient (CLI) | payer OTHER, SELFPAY ==
--- NOTE | 2024-01-20 12:58 | DI.RAD.S_ITS ---
PROCEDURE: XR KNEE LT 4V INDICATIONS: LEFT KNEE PAIN TECHNIQUE: 3 views of the knee were acquired. COMPARISON: [facility], CR, XR KNEE LT 3V, 03/03/2019, 13:59. FINDINGS: Bones: There are no osseous abnormalities. Joints: The tibialfemoral and patellofemoral joints are normal in width and alignment without arthritic change. . There are no effusions. Soft tissues: A 5 mm calcification is seen in the medial parapatellar soft tissues IMPRESSION: No significant abnormality Dictated by: Cesar Esposito M.D. on 01/21/2024 at 9:40 Approved by: Cesar Esposito M.D. on 01/21/2024 at 9:41
== END ==
PROVIDERS: Family Provider Physician Assistant; PCP Physician Assistant; Referring Provider Physician Assistant; Visit Provider Physician Assistant
DX: M25.562 Pain in left knee (principal)
CPT/HCPCS: 73564